=== PATIENT | female | born 1985 | race Caucasian/White ===

== ENCOUNTER 2019-08-19 18:27 | Emergency (ER) | payer OTHER, SELFPAY ==
--- NOTE | ~2019-08-19 | XR_ITS ---
XR hand LT min 3V 08/19/2019 18:57 INDICATION: Left hand pain and swelling after fall PROCEDURE: 3 views left hand COMPARISON: No prior studies for comparison. FINDINGS: Fracture, dislocation or subluxation is not identified. The soft tissues appear within norm al limits. No foreign bodies are identified. IMPRESSION: 1: NO ACUTE BONE OR JOINT ABNORMALITY IDENTIFIED. Reviewed, dictated and finalized at location A. OR C DEVELOPER
--- NOTE | 2019-08-19 18:36 | ED.UPPEXIN ---
HPI - Extremity Injury (Upper) General Chief Complaint: Extremity Injury, Upper Stated Complaint: hurt L hand Time Seen by Provider: 08/19/19 18:37 Source: patient and family Mode of arrival: ambulatory Limitations: no limitations History of Present Illness HPI narrative: 34-year-old woman comes in today complaining of left lateral and pain that started approximately 1 hour ago. Patient states that she tripped and fell forward and she put her hand out in order to stop herself made in the concrete. She complains of pain and swelling over the back of her left hand. She denies any numbness. complaint: injury to: left and hand Onset (ago): hour(s) (1) Other injuries: none Place: outdoors Severity: moderate Relieving factors: cold therapy Exacerbating factors: movement of extremity Context: fall Treatments prior to arrival: cold therapy Related Data Home Medications Medication Instructions Recorded Confirmed dextroamphetamine-amphetamine 2 cap PO BID 08/19/19 08/19/19 escitalopram oxalate 20 mg PO DAILY 08/19/19 08/19/19 levothyroxine 88 mcg PO DAILY 08/19/19 08/19/19 Allergies Allergy/AdvReac Type Severity Reaction Status Date / Time No Known Allergies Allergy Mild Verified 03/28/08 09:53 Review of Systems Constitutional: Constitutional: Denies chills and Denies fever(s) ENT: Denies dysphagia, Denies nasal congestion and Denies sore throat Cardiovascular: Cardiovascular: Denies chest pain and Denies radiating jaw, neck or arm pain Respiratory: Respiratory: Denies cough, Denies dyspnea and Denies wheezing Gastrointestinal: Gastrointestinal: Denies nausea and Denies vomiting Genitourinary: Genitourinary: Denies nocturia and Denies dysuria Musculoskeletal: Musculoskeletal: Reports as per HPI Integumentary/Breasts: Skin/Breast: Denies pruritus, Denies erythema and Denies rash Neurologic: Denies vertigo, Denies syncope, Denies focal weakness and Denies numbness Hematologic/Lymphatic: Hematologic/Lymphatic: Denies easy bleeding and Denies easy bruising Allergic/Immunologic: Allergic/Immunologic: Denies lip swelling and Denies wheezing PMFSH Past Medical History Medical History ADHD Anxiety Depression Hypothyroidism Obesity Family History Family History (Updated 01/25/16 @ 23:19 by DOCTOR UNKNOWN) Mother Family history of diabetes mellitus in first degree relative Depression Hypertension Family history of sleep apnea Family history of type 2 diabetes mellitus Family history of malignant neoplasm of kidney Sibling Family history of cardiomyopathy Father Family history of emphysema Family history of type 1 diabetes mellitus Social History Social History Smoking status: Never smoker Alcohol intake: current Exam Const: General: healthy appearing and alert Nutritional Appearance: obese Orientation/consciousness: patient oriented x3 Other: moderate acute distress. Resp: Effort & Inspection: normal respiratory effort and not labored Auscultation: clear to auscultation bilaterally, no rales, no rhonchi and no wheezes Cardio: Rate: regular rate Rhythm: regular rhythm Heart sounds: no murmurs Skin: General skin exam: normal color, no jaundice and no pallor Rashes: no rashes Neuro: General: patient oriented x3, moves all extremities, no focal motor deficits and CN's II-XI intact bilaterally Speech: normal speech Extrem: General: no clubbing, cyanosis or edema Other: Mild swelling over the dorsal aspect of the left 4th metacarpal. There is no tenderness with rotation of the digits, abnormal contours, tenderness over the carpals, tenderness over the distal radius or ulna, or snuffbox tenderness on the left. Distal neurovascular exam is intact. NROM at left wrist and and joints. Psych: Appearance: grossly normal and well kempt Mental Status: mental status gross
[2019-08-19 18:39] VITALS: BP 153/87; PULSE 92; RESP 18; TEMP 36.8; O2SAT 99
[2019-08-19] MEDS: IBUPROFEN 600 MG TABLET PO (18:58)
== END 2019-08-19 19:24 | disposition home or self-care (01) ==
PROVIDERS: Emergency Provider Emergency Medicine; PCP Family Medicine
DX: S60.222A Contusion of left hand, initial encounter (principal); W01.0XXA Fall on same level from slipping, tripping and stumbling without subsequent striking against object, initial encounter
CPT/HCPCS: 73130; 99283; A9270

== ENCOUNTER 2019-08-26 13:29 | Outpatient (CLI) | payer OTHER, SELFPAY ==
--- NOTE | ~2019-08-26 | XR_ITS ---
EXAMINATION: XR hand LT min 3V, XR wrist LT min 3V EXAM DATE: 08/26/2019 13:53 (accession [id number]), 08/26/2019 13:55 (accession [id number]) INDICATION: Persistent left hand and wrist pain after fall. TECHNIQUE: Left hand frontal, lateral and oblique projections obtained and reviewed. Left wrist fron thor, frontal with ulnar deviation, oblique and lateral projections obtained and reviewed. Comparison is made to prior examination from 08/19/2019. FINDINGS: Left metacarpal bones are unremarkable. Mildly wide appearing scapholunate joint space on one of the wrist images, could indicate partial dissociation. There is ulnar minus variance. No per iosteal reaction to suggest subacute fracture. There are no acute fractures or dislocations identif ied. There is no subcutaneous gas. The soft tissue is unremarkable. There are no radiopaque forei gn bodies. IMPRESSION: 1. Mildly wide scapholunate joint space, possible ligamentous injury. 2. Congenital ulnar minus variance. Reviewed, dictated and finalized at location B. ALARM REPAIRER IMPRESSION: 1. Mildly wide scapholunate joint space, possible ligamentous injury. 2. Congenital ulnar minus variance.
== END 2019-08-26 13:30 | disposition home or self-care (01) ==
LOC: CHSIMG 13:31
PROVIDERS: PCP Family Medicine; Visit Provider Family Medicine
DX: M79.642 Pain in left hand (principal); M25.532 Pain in left wrist
CPT/HCPCS: 73110; 73130

== ENCOUNTER 2019-09-03 07:38 | Outpatient (CLI) | payer OTHER, SELFPAY ==
--- NOTE | ~2019-09-03 | MR_ITS ---
EXAMINATION: MR wrist LT wo con DATE: 09/03/2019 09:35 INDICATION: Left wrist pain. Fall one week ago. TECHNIQUE: Magnetic resonance imaging (MRI) of the wrist was performed without intravenous contrast. Sequences performed include coronal T1-weighted FSE, coronal PD-weighted FS FSE, axial PD-weighted FS FSE, axial PD-weighted FSE, sagittal PD-weighted FSE, and sagittal PD-weighted FS FSE. COMPARISON: Left wrist radiographs 08/26/2019 FINDINGS: Intrinsic ligaments: Scapholunate ligament is normal, but sensitivity is decreased by motion artifact. Lunotriquetral liga ment is normal. Triangular fibrocartilage complex (TFCC): The triangular fibrocartilage is normal, but sensitivity is decreased by motion artifact. Extensor wrist: The extensor tendons are normal. Flexor wrist: The flexor tendons are normal. Median nerve is normal. Guyon's canal: Ulnar nerve is normal. Bones/other: There is a nondisplaced intra-articular fracture of base of fifth metacarpal. There is bone marrow ed jair of distal hamate. IMPRESSION: 1. Nondisplaced intra-articular fracture of base of fifth metacarpal. 2. Bone marrow edema of distal hamate without visible fracture line, consistent with contusion. Reviewed, dictated and finalized at location A.
== END 2019-09-03 07:39 | disposition home or self-care (01) ==
LOC: CHSIMG 07:39
PROVIDERS: PCP Family Medicine; Visit Provider Family Medicine
DX: M25.532 Pain in left wrist (principal)
CPT/HCPCS: 73221

== ENCOUNTER 2020-05-22 09:40 | Outpatient (CLI) | payer OTHER, SELFPAY ==
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
== END 2020-05-22 09:41 | disposition home or self-care (01) ==
LOC: CHSIMG 09:44
PROVIDERS: PCP Family Medicine; Visit Provider Family Medicine
DX: M54.9 Dorsalgia, unspecified (principal)
CPT/HCPCS: 72110

== ENCOUNTER 2020-05-30 09:02 | Outpatient (CLI) | payer OTHER, SELFPAY ==
--- NOTE | ~2020-05-30 | MR_ITS ---
EXAMINATION: MR lumbar spine wo con DATE: 05/30/2020 09:54 INDICATION: Low back pain radiating to left hip. L1 fracture. TECHNIQUE: Magnetic resonance imaging (MRI) of the lumbar spine was performed without intravenous con trast. Sequences included sagittal T2-weighted FSE, sagittal T2-weighted FS FSE, sagittal T1-weighted FSE, and axial T2-weighted FSE. COMPARISON: Lumbar spine radiographs 05/22/2020 FINDINGS: Bone alignment is normal. There is a burst fracture of superior endplate of L1 with 1/5 los s of height, bone marrow edema, and retropulsion of bone 3 mm into central spinal canal. Intervertebr al disc heights are normal. The distal spinal cord signal intensity is normal. The conus medullaris i s at L1-L2. The following disc levels are specifically discussed: T12-L1: The disc does not extend beyond the endplate margin. There is no facet joint osteoarthritis. There is no neural foraminal stenosis. There is mild central canal stenosis. L1-L2: The disc does not extend beyond the endplate margin. There is no facet joint osteoarthritis. T here is no neural foraminal stenosis. There is no central canal stenosis. L2-L3: The disc does not extend beyond the endplate margin. There is mild bilateral facet joint osteo arthritis. There is no neural foraminal stenosis. There is no central canal stenosis. L3-L4: The disc does not extend beyond the endplate margin. There is mild left facet joint osteoarthr itis. There is no neural foraminal stenosis. There is no central canal stenosis. L4-L5: The disc does not extend beyond the endplate margin. There is mild bilateral facet joint osteo arthritis. There is no neural foraminal stenosis. There is no central canal stenosis. L5-S1: The disc is mildly bulging and has an annular fissure. There is moderate bilateral facet joint osteoarthritis. There is mild bilateral neural foraminal stenosis. There is no central canal stenosi s. IMPRESSION: 1. Subacute L1 burst fracture, stable from 05/18/2020. 2. Mild lumbar spondylosis. Reviewed, dictated and finalized at location A. IAL TRACKWORK BLACKSMITH
== END 2020-05-30 09:03 | disposition home or self-care (01) ==
PROVIDERS: PCP Family Medicine; Visit Provider Family Medicine
DX: S32.012A Unstable burst fracture of first lumbar vertebra, initial encounter for closed fracture (principal)
CPT/HCPCS: 72148

== ENCOUNTER 2020-06-28 09:21 | Outpatient (CLI) | payer OTHER, SELFPAY ==
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
== END 2020-06-28 09:22 | disposition home or self-care (01) ==
LOC: CHSIMG 09:23
PROVIDERS: PCP Family Medicine; Visit Provider Family Medicine
DX: S32.011G Stable burst fracture of first lumbar vertebra, subsequent encounter for fracture with delayed healing (principal)
CPT/HCPCS: 72110

== ENCOUNTER 2020-11-05 17:56 | Emergency (ER) | payer OTHER, SELFPAY ==
[2020-11-05 18:05] VITALS: BP 155/102; PULSE 81; RESP 20; TEMP 37.1; O2SAT 99
--- NOTE | 2020-11-05 18:05 | ED.EAR ---
HPI - Ear Problem General Chief complaint: Ear Stated complaint: feels like something in L ear Source: patient and RN notes reviewed Mode of arrival: ambulatory Limitations: no limitations History of Present Illness HPI Narrative: Patient feels like there is something crawling in her ear every few minutes. Started about 30 minutes prior to arrival Complaint: foreign body Location: left ear Duration: intermittent Severity: mild Relieving factors: nothing Exacerbating factors: nothing Discharge from ear: Reports no Treatment prior to arrival: none Related Data Home Medications Medication Instructions Recorded Confirmed dextroamphetamine-amphetamine 2 cap PO BID 08/19/19 08/19/19 escitalopram oxalate 20 mg PO DAILY 08/19/19 08/19/19 Allergies Allergy/AdvReac Type Severity Reaction Status Date / Time No Known Allergies Allergy Mild Verified 03/28/08 09:53 Review of Systems Review of Systems: All systems reviewed & are unremarkable except as noted in HPI and below PMFSH Past Medical History Medical History (Updated 11/05/20 @ 18:15 by Rnajeet Lang MD) ADHD Anxiety Depression Hypothyroidism Obesity Surgical History Surgical History (Updated 11/05/20 @ 18:15 by Ranjeet Lang MD) No pertinent past surgical history Family History Family History Mother Family history of diabetes mellitus in first degree relative Depression Hypertension Family history of sleep apnea Family history of type 2 diabetes mellitus Family history of malignant neoplasm of kidney Sibling Family history of cardiomyopathy Father Family history of emphysema Family history of type 1 diabetes mellitus Social History Social History Smoking status: Never smoker Alcohol intake: current Exam Const: General: healthy appearing and no acute distress Nutritional Appearance: well nourished and obese morbidly obese Orientation/consciousness: patient oriented x3 Other: female nurse in room during examination. HENMT: Head: normal to inspection Ears: external ears normal, TM's normal bilaterally and Abnormal EAC present foreign body ( There is an and crawling in her ear over her eardrum) on the left Eyes: Conjunctivae: conjunctivae normal Pupils: Equal, round and reactive pupils present EOM: EOMs intact bilaterally Neck: Neck: normal visual inspection Resp: Effort & Inspection: normal respiratory effort Auscultation: clear to auscultation bilaterally Cardio: Rate: regular rate Rhythm: regular rhythm Back/Spine/Pelvis: Cervical Spine: cervical ROM normal Thoracic/Lumbar Spine: thoraco-lumbar ROM normal Skin: General skin exam: normal color Rashes: no rashes Neuro: General: patient oriented x3, moves all extremities and no focal motor deficits Speech: normal speech Gait exam (Neuro): Normal gait present Extrem: General: normal to inspection and no clubbing, cyanosis or edema Psych: Appearance: grossly normal and well kempt Mental Status: mental status grossly normal Affect: normal affect Attitude: cooperative Thought content: Yes Normal thought content present Course Course Emergency Course: nurse was able to flush the ant out of the left EAC with an Angiocath and syringe Discharge Plan Discharge Clinical Impression: Foreign body in ear Qualifiers: Encounter type: initial encounter Laterality: left Qualified Code(s): T16.2XXA - Foreign body in left ear, initial encounter Patient Disposition: Home, Self-Care Condition: Improved Prescriptions: No Action dextroamphetamine-amphetamine 20 mg capsule,extended release 24hr 2 cap PO BID RF: 0 escitalopram oxalate 20 mg tablet 20 mg PO DAILY RF: 0 Follow-up/Referrals: Henry Pham MD [Primary Care Provider] - Time of Disposition: 18:12
== END 2020-11-05 18:16 | disposition home or self-care (01) ==
PROVIDERS: Emergency Provider Emergency Medicine; PCP Family Medicine
DX: T16.2XXA Foreign body in left ear, initial encounter (principal)
CPT/HCPCS: 99282

== ENCOUNTER 2020-11-21 09:56 | Outpatient (CLI) | payer OTHER, SELFPAY ==
[2020-11-21 10:08] LABS: Basophils Absolute Auto 0.05 K/mm3 (0.00-0.10); Basophils Percent Auto 0.6 % (0.0-1.0); Eosinophils Absolute Auto 0.23 K/mm3 (0.02-0.50); Eosinophils Percent Auto 2.9 % (1.0-6.0); Hematocrit 40.3 % (35.0-49.0); Hemoglobin 12.9 g/dL (12.0-15.0); Immature Granulocyte Absolute 0.03 K/mm3 (0.00-0.00); Immature Granulocyte Percent A 0.4 % (0.0-0.0); Lymphocytes Percent Auto 33.2 % (18.0-42.0); Mean Corpuscular Hemoglobin 25.2 pg (27.0-31.0); Mean Corpuscular Volume 78.9 fL (78.0-102.0); Mean Platelet Volume 9.9 fl (9.2-11.8); Monocytes Percent Auto 5.1 % (2.0-11.0); Neutrophils Absolute Auto 4.5 K/mm3 (1.7-7.2); Neutrophils Percent Auto 57.8 % (50.0-70.0); Platelet Count Result 273 K/mm3 (150-420); Red Blood Count 5.11 M/mm3 (4.20-5.40); Red Cell Distribution Width 13.6 % (11.6-14.4); White Blood Count 7.8 K/mm3 (4.8-10.8)
[2020-11-21 11:15] LABS: Alanine Aminotransferase 24 U/L (14-59); Albumin Level 3.5 g/dL (3.4-5.0); Alkaline Phosphatase 93 U/L (46-116); Anion Gap 8 mmol/L (8-16); Aspartate Amino Transferase 10 U/L (15-37); Bilirubin,Total 0.2 mg/dL (0.00-1.00); Blood Urea Nitrogen 13 mg/dL (7-18); Carbon Dioxide 29 mmol/L (21-32); Chloride 101 mmol/L (98-108); Cholesterol 167 mg/dL (0-200); Estimated Glomerular Filt Rate > 60; Glucose 101 mg/dL (70-99); HDL Direct 41 mg/dL (40-60); LDL Cholesterol Calculated 99 mg/dL (<130); Osmolality Calculated 286 mOsm/kg (285-295); Potassium 4.7 mmol/L (3.5-5.1); Sodium 138 mmol/L (136-145); Thyroid Stimulating Hormone 2.29 uIU/mL (0.36-3.74); Total Protein 7.5 g/dL (6.4-8.2); Triglycerides 133 mg/dL (0-150)
== END 2020-11-21 09:57 | disposition home or self-care (01) ==
LOC: CHSLAB 09:58
PROVIDERS: PCP Family Medicine; Visit Provider Family Medicine
DX: R53.83 Other fatigue (principal); E03.8 Other specified hypothyroidism; Z13.220 Encounter for screening for lipoid disorders
CPT/HCPCS: 36415; 80053; 80061; 84439; 84443; 85025

== ENCOUNTER 2020-12-06 13:58 | Outpatient (CLI) | payer OTHER, SELFPAY ==
[2020-12-06 15:07] LABS: SARS-CoV-2 RNA PCR Negative (Negative)
== END 2020-12-06 13:59 | disposition home or self-care (01) ==
LOC: CHSLAB 14:00
PROVIDERS: PCP Family Medicine; Visit Provider Family Medicine
DX: J00 Acute nasopharyngitis [common cold] (principal); Z20.822 Contact with and (suspected) exposure to COVID-19
CPT/HCPCS: 87081; 87880; C9803; U0003; U0005

== ENCOUNTER 2021-04-11 10:11 | Outpatient (CLI) | payer OTHER, SELFPAY ==
[2021-04-11 11:46] LABS: Influenza A QL RT-PCR Negative (Negative); Influenza B QL RT-PCR Negative (Negative); SARS-CoV-2 RNA PCR Negative (Negative)
== END 2021-04-11 10:12 | disposition home or self-care (01) ==
LOC: CHSLAB 10:13
PROVIDERS: PCP Family Medicine; Visit Provider Family Medicine
DX: J00 Acute nasopharyngitis [common cold] (principal); Z20.822 Contact with and (suspected) exposure to COVID-19
CPT/HCPCS: 87081; 87502; 87880; C9803; U0003; U0005

== ENCOUNTER 2021-04-25 15:56 | Outpatient (CLI) | payer OTHER, SELFPAY ==
--- NOTE | ~2021-04-25 | XR_ITS ---
EXAMINATION: XR chest 2V DATE: 04/25/2021 16:24 INDICATION: Cough. TECHNIQUE: Frontal and lateral views of the chest were obtained. COMPARISON: Chest 2 views 07/22/16, lumbar spine radiographs 06/28/2020 FINDINGS: The chest demonstrates clear lungs without pneumonia, pleural effusion, or pneumothorax. Th e heart size is normal. There is a chronic L1 burst fracture. IMPRESSION: 1. No acute cardiopulmonary disease. Reviewed, dictated and finalized at location A.
== END 2021-04-25 15:57 | disposition home or self-care (01) ==
LOC: CHSIMG 15:57
PROVIDERS: PCP Family Medicine; Visit Provider Family Medicine
DX: R05.9 Cough, unspecified (principal)
CPT/HCPCS: 71046

== ENCOUNTER 2021-09-27 08:04 | Outpatient (CLI) | payer OTHER, SELFPAY ==
--- NOTE | ~2021-09-27 | XR_ITS ---
XR_CERV2-3V_CR DATE: 09/27/2021 08:38 INDICATION: Left-sided neck pain for 2 days. No known injury. TECHNIQUE: AP, lateral, open-mouth and odontoid views COMPARISON: None FINDINGS: There is straightening of the cervical spine which may be due to muscle spasm. C1 and C2 are normally aligned and the odontoid process is intact. No fracture or dislocation or locked facet or prevertebral soft tissue swelling. The cervical intersp aces are well preserved. IMPRESSION: Straightening Reviewed, dictated and finalized at Location A. Reviewed, dictated and finalized at location A. IMPRESSION: Straightening
[2021-09-27 08:15] LABS: Hematocrit 39.9 % (35.0-49.0); Mean Corpuscular HGB Conc 32.6 g/dL (32.0-36.0); Mean Corpuscular Hemoglobin 25.9 pg (27.0-31.0); Mean Corpuscular Volume 79.6 fL (78.0-102.0); Mean Platelet Volume 9.9 fl (9.2-11.8); Platelet Count Result 280 K/mm3 (150-420); Red Blood Count 5.01 M/mm3 (4.20-5.40); Red Cell Distribution Width 14.2 % (11.6-14.4); White Blood Count 8.6 K/mm3 (4.8-10.8)
[2021-09-27 08:25] LABS: Add Urine Microscopic? NO; Appearance Urine Clear (Clear); Bilirubin Urine Negative (Negative); Blood Urine Negative (Negative); Color Urine Light Yellow (Yellow); Glucose Urine UA Negative (Negative); Ketones Urine Negative (Negative); Leukocyte Esterase Ur Negative LEU/UL (Negative); Nitrate Urine Negative (Negative); Protein Urine Negative (Negative); Specific Grav Ur 1.025 (1.010-1.020); Urobilinogen Urine 0.2 mg/dL (0.2-1.0); pH Urine 5.5 (5.0-8.0)
[2021-09-27 08:35] LABS: Hemoglobin A1C 6.3 % (<5.7)
[2021-09-27 09:20] LABS: Alanine Aminotransferase 21 U/L (14-59); Albumin Level 3.3 g/dL (3.4-5.0); Alkaline Phosphatase 85 U/L (46-116); Anion Gap 8 mmol/L (8-16); Aspartate Amino Transferase 10 U/L (15-37); Bilirubin,Total 0.1 mg/dL (0.00-1.00); Blood Urea Nitrogen 15 mg/dL (7-18); Calcium 8.3 mg/dL (8.5-10.1); Carbon Dioxide 25 mmol/L (21-32); Chloride 103 mmol/L (98-108); Cholesterol 158 mg/dL (0-200); Estimated Glomerular Filt Rate > 60; Free T4 Free Thyroxine 0.86 ng/dL (0.76-1.46); Glucose 114 mg/dL (70-99); HDL Direct 33 mg/dL (40-60); LDL Cholesterol Calculated 79 mg/dL (<130); Osmolality Calculated 283 mOsm/kg (285-295); Potassium 4.5 mmol/L (3.5-5.1); Sodium 136 mmol/L (136-145); Thyroid Stimulating Hormone 4.91 uIU/mL (0.36-3.74); Total Protein 7.1 g/dL (6.4-8.2); Triglycerides 229 mg/dL (0-150)
[2021-10-01 14:05] LABS: Vitamin D 25 Hydroxy 13 ng/mL (30-100)
== END 2021-09-27 08:05 | disposition home or self-care (01) ==
LOC: CHSLAB 08:06
PROVIDERS: PCP Family Medicine; Visit Provider Nurse Practitioner Family
DX: M54.2 Cervicalgia (principal); R73.9 Hyperglycemia, unspecified; E66.9 Obesity, unspecified; E03.9 Hypothyroidism, unspecified
CPT/HCPCS: 36415; 72040; 80053; 80061; 81003; 82306; 83036; 84439; 84443; 85027

== ENCOUNTER 2021-10-08 10:50 | Outpatient (RCR) | payer OTHER, SELFPAY ==
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
--- NOTE | 2022-03-05 06:51 | PCPTNOTE ---
Ms. Galvan attended at treatment from 10/08/21 to 12/12/21. She has failed to return to the clinic and will be discharged from our care at this time. Refer to the last daily note for pt. discharge status.
== END 2021-12-12 23:59 | disposition home or self-care (01) ==
LOC: CHSPT 10:50
PROVIDERS: PCP Family Medicine; Visit Provider Family Medicine
DX: M54.2 Cervicalgia (principal); M25.511 Pain in right shoulder
CPT/HCPCS: 97012; 97014; 97110; 97140; 97161; G0283

== ENCOUNTER 2021-11-16 09:01 | Outpatient (CLI) | payer OTHER, SELFPAY ==
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
== END 2021-11-16 09:02 | disposition home or self-care (01) ==
LOC: CHSIMG 09:03
PROVIDERS: PCP Family Medicine; Visit Provider Family Medicine
DX: M54.2 Cervicalgia (principal); M25.511 Pain in right shoulder
CPT/HCPCS: 72040; 73030

== ENCOUNTER 2022-01-18 11:55 | Emergency (ER) | payer OTHER, SELFPAY ==
[2022-01-18] VITALS (9 sets, daily range): BP systolic 127–163; BP diastolic 70–94; PULSE 74–111; RESP 16–18; TEMP 36.8; O2SAT 95–100
[2022-01-18 13:45] LABS: Basophils Absolute Auto 0.03 K/mm3 (0.00-0.10); Basophils Percent Auto 0.3 % (0.0-1.0); Eosinophils Absolute Auto 0.21 K/mm3 (0.02-0.50); Eosinophils Percent Auto 2.1 % (1.0-6.0); Hematocrit 36.9 % (35.0-49.0); Hemoglobin 11.6 g/dL (12.0-15.0); Immature Granulocyte Absolute 0.04 K/mm3 (0.00-0.00); Immature Granulocyte Percent A 0.4 % (0.0-0.0); Lymphocytes Absolute Auto 2.75 K/mm3 (1.10-4.50); Mean Corpuscular HGB Conc 31.4 g/dL (32.0-36.0); Mean Corpuscular Hemoglobin 25.1 pg (27.0-31.0); Mean Corpuscular Volume 79.9 fL (78.0-102.0); Mean Platelet Volume 10.2 fl (9.2-11.8); Monocytes Absolute Auto 0.52 K/mm3 (0.10-0.90); Monocytes Percent Auto 5.1 % (2.0-11.0); Neutrophils Absolute Auto 6.6 K/mm3 (1.7-7.2); Neutrophils Percent Auto 65.1 % (50.0-70.0); Platelet Count Result 271 K/mm3 (150-420); Red Blood Count 4.62 M/mm3 (4.20-5.40); Red Cell Distribution Width 14.4 % (11.6-14.4); White Blood Count 10.2 K/mm3 (4.8-10.8)
[2022-01-18 13:59] LABS: Alanine Aminotransferase 30 U/L (14-59); Albumin Level 3.4 g/dL (3.4-5.0); Alkaline Phosphatase 80 U/L (46-116); Anion Gap 7 mmol/L (8-16); Aspartate Amino Transferase 17 U/L (15-37); Bilirubin,Total 0.3 mg/dL (0.00-1.00); Blood Urea Nitrogen 12 mg/dL (7-18); Calcium 8.6 mg/dL (8.5-10.1); Carbon Dioxide 26 mmol/L (21-32); Chloride 104 mmol/L (98-108); Estimated Glomerular Filt Rate > 60; Glucose 89 mg/dL (70-99); Osmolality Calculated 282 mOsm/kg (285-295); Sodium 137 mmol/L (136-145); Total Protein 7.4 g/dL (6.4-8.2)
[2022-01-18 14:04] LABS: CRP 2.7 mg/dL (0.0-0.9)
[2022-01-18] MEDS: MAG HYDROX/ALUMINUM HYD/SIMETH 30 ML, PHENobarb/HYOSCY/ATROPINE/SCOP 32.4 MG, LIDOCAINE... PO (14:28)
[2022-01-18] MEDS: KETOROLAC 30 MG/ML VIAL (*BKC) IV PUSH (14:29)
[2022-01-18] MEDS: ONDANSETRON INJ 4 MG/2 ML VIAL IV PUSH (14:30)
[2022-01-18] MEDS: diphenhydrAMINE HCl INJ 50 MG/ML VIAL IV PUSH (14:31)
[2022-01-18] MEDS: SODIUM CHLORIDE 0.9% IV 1,000 ML 999 ML IV CONT (14:31)
[2022-01-18 14:47] LABS: Erythrocyte Sedimentation Rate 27 mm/hr (0-15)
--- NOTE | 2022-01-18 15:36 | ED.GENADULT ---
HPI - General Adult General Chief complaint: Nausea/Vomiting/Diarrhea Stated complaint: nausea, vomitting, headache, bloody nose History of Present Illness HPI narrative: patient is a 36-year-old woman who had a nosebleed yesterday that resolved. Subsequently, at 3:00 a.m. today, she had an episode of nausea and 1 episode of vomiting, for which she took Pepto-Bismol. She did well initially. At work, she developed nausea & a worsening headache. The headache is similar to her migraine headaches that she gets frequently. She has had a head CT scan in the recent past that was negative. Also had heartburn symptoms that subsequently resolved. No abdominal pain. No fever no chills or diaphoresis. No respiratory symptoms. No other complaints. The headache is not worse by light, noise or movements. No further emesis. Related Data Home Medications Medication Instructions Recorded Confirmed dextroamphetamine-amphetamine ER 2 cap PO BID 08/19/19 01/18/22 20 mg 24hr capsule,extend release escitalopram oxalate 20 mg tablet 20 mg PO DAILY 08/19/19 01/18/22 Allergies Allergy/AdvReac Type Severity Reaction Status Date / Time No Known Allergies Allergy Mild Verified 01/18/22 12:21 Review of Systems Review of Systems: All systems reviewed & are unremarkable except as noted in HPI and below Constitutional: Constitutional: Reports no additional constitutional complaints, Denies anorexia, Denies body ache(s), Denies chills, Denies excessive sweating, Denies fatigue, Denies fever(s), Denies frequent falls, Denies headache(s), Denies malaise and Denies poor appetite Eyes: Eyes: Reports no additional eye complaints, Denies blurry vision, Denies change in vision, Denies irritation, Denies itchy eyes and Denies photophobia ENT: Reports system reviewed and no additional complaints, except as documented, Reports Normal hearing present, Denies change in voice, Denies dysphagia, Denies vertigo, Denies dizziness, Denies ear discharge, Denies headache(s), Denies hearing loss, Denies hoarseness, Denies nasal congestion, Denies neck pain, Denies sinus pressure, Denies sore throat and Denies throat swelling Cardiovascular: Cardiovascular: Reports no additional cardiovascular complaints, Denies chest pain, Denies syncope, Denies rapid heart rate, Denies irregular heart rhythm, Denies leg edema, Denies dyspnea and Denies slow heart rate Respiratory: Respiratory: Reports no additional respiratory complaints, Denies cough, Denies dyspnea, Denies stridor and Denies wheezing Gastrointestinal: Gastrointestinal: Reports no additional gastrointestinal complaints, Denies abdominal pain, Denies melena, Denies hematochezia, Denies dysphagia, Reports heartburn, Denies diarrhea, Reports nausea and Reports vomiting Genitourinary: Genitourinary: Denies hematuria, Denies urinary frequency, Denies dysuria, Denies flank pain and Denies urinary urgency Musculoskeletal: Musculoskeletal: Reports no additional musculoskeletal complaints, Denies abnormal gait, Denies back pain, Denies myalgias, Denies arthralgias, Denies joint swelling, Denies limited range of motion, Denies muscle cramps, Denies muscle weakness, Denies neck pain and Denies numbness Integumentary/Breasts: Skin/Breast: Reports system reviewed and no additional complaints, except as docu, Denies breast pain, Denies change in pigmentation, Denies pruritus, Denies erythema and Denies wounds Neurologic: Reports system reviewed and no additional complaints, except as documented, Reports Normal hearing present, Denies Abnormal speech present, Denies abnormal gait, Denies confusion, Denies vertigo, Denies dizziness, Denies syncope, Denies frequent falls, Reports headache(s), Denies focal weakness, Denies numbness and Denies paresthesias Psychiatric: Psychiatric: Reports no additional psychiatric complaints and Denies confusion Endocrine: Endocrine: Reports no additional endocrine complaints, Denies cold intolerance, Denies e
== END 2022-01-18 16:10 | disposition home or self-care (01) ==
PROVIDERS: Emergency Provider Emergency Medicine; PCP Family Medicine
DX: R51.9 Headache, unspecified (principal); R11.2 Nausea with vomiting, unspecified
CPT/HCPCS: 36415; 80053; 85025; 85652; 86140; 96361; 96374; 96375; 99284; A9270; J1200; J1885; J2405; J7030

== ENCOUNTER 2022-04-15 09:55 | Outpatient (CLI) | payer OTHER, SELFPAY ==
--- NOTE | ~2022-04-15 | XR_ITS ---
EXAMINATION:XR_[id number]_CR DATE: 04/15/2022 10:12 INDICATION: Neck pain TECHNIQUE: AP, lateral, lateral swimmers and odontoid views of the cervical spine are provided. COMPARISON: 11/16/2021 FINDINGS: There is straightening of the cervical spine which can be positional or due to muscular spa sm. Alignment is normal. The odontoid is intact. No fracture is identified. Vertebral body heights an d disk spaces are normal. Prevertebral soft tissues are normal. IMPRESSION: 1. No acute osseous abnormality. Reviewed, dictated and finalized at location A.
== END 2022-04-15 09:56 | disposition home or self-care (01) ==
LOC: CHSIMG 09:57
PROVIDERS: PCP Family Medicine; Visit Provider Family Medicine
DX: M54.2 Cervicalgia (principal)
CPT/HCPCS: 72040

== ENCOUNTER 2022-07-04 19:38 | Emergency (ER) | payer OTHER, SELFPAY ==
--- NOTE | 2022-07-04 19:43 | ED.GENADULT ---
HPI - General Adult General Chief complaint: Nausea/Vomiting/Diarrhea Stated complaint: diarrhea, abdominal pain, nauseous Time Seen by Provider: 07/04/22 19:42 History of Present Illness HPI narrative: Sepideh is a 37F with a PMH of ADHD, anxiety, depression, hypothyroidism and obesity that presented to the ED with abdominal pain. Earlier in the day she developed waxing and waning diffuse abdominal cramping with several episodes of watery diarrhea and nausea. It is better with leaving forward but worse with standing up. No flank pain, dysuria, hematuria, or vaginal bleeding. She reports good fluid intake. Related Data Home Medications Medication Instructions Recorded Confirmed dextroamphetamine-amphetamine ER 2 cap PO BID 08/19/19 07/04/22 20 mg 24hr capsule,extend release escitalopram oxalate 20 mg tablet 20 mg PO DAILY 08/19/19 07/04/22 Allergies Allergy/AdvReac Type Severity Reaction Status Date / Time No Known Allergies Allergy Mild Verified 01/18/22 12:21 Review of Systems Review of Systems: All systems reviewed & are unremarkable except as noted in HPI and below PMFSH Past Medical History Medical History ADHD Anxiety Depression Hypothyroidism Obesity Surgical History Surgical History No pertinent past surgical history Family History Family History Mother Family history of diabetes mellitus in first degree relative Depression Hypertension Family history of sleep apnea Family history of type 2 diabetes mellitus Family history of malignant neoplasm of kidney Sibling Family history of cardiomyopathy Father Family history of emphysema Family history of type 1 diabetes mellitus Social History Social History Smoking status: Never smoker Alcohol intake: current Exam Const: General: healthy appearing and no acute distress Nutritional Appearance: well nourished Orientation/consciousness: patient oriented x3 Limitations: no limitations HENMT: Head: normal to inspection Ears: external ears normal Face/Nose/Sinus: Normal external nose present Eyes: Conjunctivae: conjunctivae normal Pupils: Equal, round and reactive pupils present EOM: EOMs intact bilaterally Neck: Neck: normal visual inspection Chest: Chest palpation & inspection: normal inspection of the chest Resp: Effort & Inspection: normal respiratory effort Auscultation: clear to auscultation bilaterally Cardio: Rate: regular rate Rhythm: regular rhythm GI: Inspection: non-distended GI Palp: Yes Soft to palpation, No Tenderness to palpation present (GI), No Guarding due to palpation present (GI), No Rigid due to palpation and No Rebound tenderness present Auscultation: normal bowel sounds : General: Yes bladder normal to palpation and Yes no CVA tenderness Skin: General skin exam: normal color Neuro: General: patient oriented x3 and moves all extremities Extrem: General: normal to inspection Psych: Mental Status: mental status grossly normal Course Course Emergency Course: labs largely unremarkable except an elevated CRP. No anemia, leukocytosis, severe electrolyte abnormalities, unremarkable UA and negative viral testing. She felt better after the dicyclomine and zofran Vital Signs Vital signs: Vital Signs Temperature 99.0 F 07/04/22 19:46 Pulse Rate 102 H 07/04/22 19:46 Respiratory Rate 18 07/04/22 19:46 Blood Pressure 155/88 H 07/04/22 19:46 Pulse Oximetry 100 07/04/22 19:46 Oxygen Delivery Room Air 07/04/22 19:46 Temperature 99.0 F 07/04/22 19:46 Pulse Rate 102 H 07/04/22 19:46 Respiratory Rate 18 07/04/22 19:46 Blood Pressure 155/88 H 07/04/22 19:46 Pulse Oximetry 100 07/04/22 19:46 Oxygen Delivery Room Air 07/04/22 19:46 Me
[2022-07-04 19:46] VITALS: BP 155/88; PULSE 102; RESP 18; TEMP 37.2; O2SAT 100
[2022-07-04] MEDS: ONDANSETRON HCL ODT 4 MG TABLET PO (19:58)
[2022-07-04] MEDS: DICYCLOMINE HCL INJ 20 MG/2 ML VIAL IM (19:58)
[2022-07-04 20:21] LABS: Basophils Absolute Auto 0.02 K/mm3 (0.00-0.10); Basophils Percent Auto 0.2 % (0.0-1.0); Eosinophils Absolute Auto 0.09 K/mm3 (0.02-0.50); Eosinophils Percent Auto 0.9 % (1.0-6.0); Hematocrit 39.6 % (35.0-49.0); Hemoglobin 12.5 g/dL (12.0-15.0); Immature Granulocyte Absolute 0.05 K/mm3 (0.00-0.00); Immature Granulocyte Percent A 0.5 % (0.0-0.0); Lymphocytes Absolute Auto 0.54 K/mm3 (1.10-4.50); Lymphocytes Percent Auto 5.6 % (18.0-42.0); Mean Corpuscular HGB Conc 31.6 g/dL (32.0-36.0); Mean Corpuscular Hemoglobin 24.8 pg (27.0-31.0); Mean Corpuscular Volume 78.6 fL (78.0-102.0); Mean Platelet Volume 10.1 fl (9.2-11.8); Monocytes Absolute Auto 0.29 K/mm3 (0.10-0.90); Neutrophils Absolute Auto 8.7 K/mm3 (1.7-7.2); Neutrophils Percent Auto 89.8 % (50.0-70.0); Platelet Count Result 231 K/mm3 (150-420); Red Blood Count 5.04 M/mm3 (4.20-5.40); Red Cell Distribution Width 14.6 % (11.6-14.4); White Blood Count 9.6 K/mm3 (4.8-10.8)
[2022-07-04 20:34] LABS: Prothrombin Time 10.9 Seconds (9.50-12.10)
[2022-07-04 20:37] LABS: Alanine Aminotransferase 33 U/L (14-59); Albumin Level 3.4 g/dL (3.4-5.0); Alkaline Phosphatase 87 U/L (46-116); Anion Gap 8 mmol/L (8-16); Aspartate Amino Transferase 20 U/L (15-37); Bilirubin,Total 0.4 mg/dL (0.00-1.00); Blood Urea Nitrogen 12 mg/dL (7-18); CRP 3.5 mg/dL (0.0-0.9); Calcium 8.2 mg/dL (8.5-10.1); Carbon Dioxide 27 mmol/L (21-32); Chloride 98 mmol/L (98-108); Estimated CRCL calculation 131 ml/min; Estimated Glomerular Filt Rate > 60; Glucose 126 mg/dL (70-99); Lipase 17 U/L (16-77); Osmolality Calculated 277 mOsm/kg (285-295); Potassium 3.8 mmol/L (3.5-5.1); Sodium 133 mmol/L (136-145); Total Protein 7.9 g/dL (6.4-8.2)
[2022-07-04 20:38] LABS: Add Urine Microscopic? NO; Appearance Urine Clear (Clear); Bilirubin Urine Negative (Negative); Blood Urine Negative (Negative); Color Urine Yellow (Yellow); Glucose Urine UA Negative (Negative); Ketones Urine Negative (Negative); Leukocyte Esterase Ur Negative LEU/UL (Negative); Nitrate Urine Negative (Negative); Protein Urine Negative (Negative); Specific Grav Ur >= 1.030 (1.010-1.020); Urobilinogen Urine 0.2 mg/dL (0.2-1.0); pH Urine 5.5 (5.0-8.0)
[2022-07-04 20:40] LABS: Pregnancy On Board Control Positive; Urine Pregnancy Test Negative
[2022-07-04 20:42] LABS: Lactic Acid Reflex 1.4 mmol/L (0.4-2.0)
[2022-07-04 20:59] LABS: Influenza A QL RT-PCR Negative (Negative); Influenza B QL RT-PCR Negative (Negative); RSV RNA, RT-PCR Negative (Negative); SARS-CoV-2 RNA PCR Negative (Negative)
[2022-07-04 21:05] VITALS: BP 100/56; PULSE 99; RESP 18; TEMP 36.6; O2SAT 100
== END 2022-07-04 21:13 | disposition home or self-care (01) ==
PROVIDERS: Emergency Provider Family Medicine; PCP Family Medicine
DX: K52.9 Noninfective gastroenteritis and colitis, unspecified (principal); E03.9 Hypothyroidism, unspecified; F90.9 Attention-deficit hyperactivity disorder, unspecified type; F41.9 Anxiety disorder, unspecified; F32.A Depression, unspecified; E66.01 Morbid (severe) obesity due to excess calories; Z68.43 Body mass index [BMI] 50.0-59.9, adult; Z20.822 Contact with and (suspected) exposure to COVID-19
CPT/HCPCS: 36415; 80053; 81003; 81025; 83605; 83690; 85025; 85610; 86140; 87637; 96372; 99283; A9270; J0500

== ENCOUNTER 2022-09-19 15:07 | Outpatient (CLI) | payer OTHER, SELFPAY ==
[2022-09-19 15:49] LABS: Strep Group A RT-PCR NOT DETECTED (Negative)
[2022-09-19 15:57] LABS: Influenza A QL RT-PCR Negative (Negative); Influenza B QL RT-PCR Negative (Negative); SARS-CoV-2 RNA PCR Negative (Negative)
== END 2022-09-19 15:08 | disposition home or self-care (01) ==
PROVIDERS: PCP Family Medicine; Visit Provider Family Medicine
DX: R05.1 Acute cough (principal); Z20.822 Contact with and (suspected) exposure to COVID-19
CPT/HCPCS: 87636; 87651

== ENCOUNTER 2022-12-19 11:48 | Outpatient (CLI) | payer OTHER, SELFPAY ==
--- NOTE | ~2022-12-19 | XR_ITS ---
Lumbosacral Spine: AP and lateral views Clinical History: Pain Findings: The normal lordotic curve is maintained. The vertebral bodies and posterior elements are i ntact. The intervertebral disc spaces are preserved. The sacroiliac joints are normally outlined. Impression: No significant abnormality. Reviewed, dictated and finalized at [facility]. Impression: No significant abnormality.
== END 2022-12-19 11:49 | disposition home or self-care (01) ==
LOC: CHSIMG 11:50
PROVIDERS: PCP Family Medicine; Visit Provider Family Medicine
DX: M54.41 Lumbago with sciatica, right side (principal)
CPT/HCPCS: 72100

== ENCOUNTER 2023-01-07 12:42 | Outpatient (CLI) | payer OTHER, SELFPAY ==
[2023-01-07 13:30] LABS: Influenza A QL RT-PCR Negative (Negative); Influenza B QL RT-PCR Negative (Negative); SARS-CoV-2 RNA PCR Negative (Negative)
== END 2023-01-07 12:43 | disposition home or self-care (01) ==
LOC: CHSLAB 12:44
PROVIDERS: PCP Family Medicine; Visit Provider Family Medicine
DX: J06.9 Acute upper respiratory infection, unspecified (principal); Z20.822 Contact with and (suspected) exposure to COVID-19
CPT/HCPCS: 87636

== ENCOUNTER 2023-01-12 15:17 | Outpatient (CLI) | payer OTHER, SELFPAY ==
--- NOTE | ~2023-01-12 | XR_ITS ---
XR chest 2V DATE: 01/12/2023 15:45 INDICATION: Cough for one week TECHNIQUE: PA and lateral views COMPARISON: 04/25/2021 PA and lateral chest FINDINGS: Normal heart size. No hilar or mediastinal enlargement. No pulmonary infiltrate or consolid ation, pleural effusion or pulmonary vascular congestion or pneumothorax is detected. IMPRESSION: Negative Reviewed, dictated and finalized at location B. IMPRESSION: Negative
[2023-01-15 02:29] LABS: B. pertussis Source Nasal Swab
== END 2023-01-12 15:18 | disposition home or self-care (01) ==
LOC: CHSLAB 15:19
PROVIDERS: PCP Family Medicine; Visit Provider Family Medicine
DX: R05.9 Cough, unspecified (principal)
CPT/HCPCS: 71046; 87798

== ENCOUNTER 2023-08-14 13:46 | Outpatient (CLI) | payer OTHER, SELFPAY ==
[2023-08-14 14:25] LABS: Strep Group A RT-PCR NOT DETECTED (Negative)
[2023-08-14 14:32] LABS: SARS-CoV-2 RNA PCR Positive (Negative)
[2023-08-14 14:48] LABS: Influenza A QL RT-PCR Negative (Negative); Influenza B QL RT-PCR Negative (Negative)
== END 2023-08-14 13:47 | disposition home or self-care (01) ==
LOC: CHSLAB 13:47
PROVIDERS: PCP Family Medicine; Visit Provider Family Medicine
DX: U07.1 COVID-19 (principal); J06.9 Acute upper respiratory infection, unspecified
CPT/HCPCS: 87636; 87651

== ENCOUNTER 2024-05-20 11:43 | Outpatient (CLI) | payer OTHER, SELFPAY ==
[2024-05-20 11:57] LABS: Basophils Absolute Auto 0.05 K/mm3 (0.00-0.10); Basophils Percent Auto 0.5 % (0.0-1.0); Eosinophils Absolute Auto 0.21 K/mm3 (0.02-0.50); Eosinophils Percent Auto 2.2 % (1.0-6.0); Hematocrit 39.3 % (35.0-49.0); Hemoglobin 12.7 g/dL (12.0-15.0); Immature Granulocyte Absolute 0.11 K/mm3 (0.00-0.00); Immature Granulocyte Percent A 1.1 % (0.0-0.0); Lymphocytes Absolute Auto 3.05 K/mm3 (1.10-4.50); Lymphocytes Percent Auto 31.8 % (18.0-42.0); Mean Corpuscular HGB Conc 32.3 g/dL (32-36); Mean Corpuscular Hemoglobin 24.4 pg (27.0-31.0); Mean Corpuscular Volume 75.6 fL (78.0-102.0); Mean Platelet Volume 9.9 fl (9.2-11.8); Monocytes Absolute Auto 0.42 K/mm3 (0.10-0.90); Monocytes Percent Auto 4.4 % (2.0-11.0); Neutrophils Absolute Auto 5.75 K/mm3 (1.70-7.20); Platelet Count Result 299 K/mm3 (150-420); Red Cell Distribution Width 14.6 % (11.6-14.4); White Blood Count 9.6 K/mm3 (4.8-10.8)
[2024-05-20 11:58] LABS: Add Urine Microscopic? NO; Appearance Urine Clear (Clear); Bilirubin Urine Negative (Negative); Blood Urine Negative (Negative); Color Urine Light Yellow (Yellow); Glucose Urine UA Negative (Negative); Ketones Urine Negative (Negative); Leukocyte Esterase Ur Negative (Negative); Nitrate Urine Negative (Negative); Protein Urine Negative (Negative); Urobilinogen Urine 0.2 mg/dL (0.2-1.0)
[2024-05-20 12:29] LABS: Alanine Aminotransferase 30 U/L (14-59); Albumin Level 3.5 g/dL (3.4-5.0); Alkaline Phosphatase 101 U/L (46-116); Amylase 50 U/L (25-115); Anion Gap 7 mmol/L (4-12); Aspartate Amino Transferase 21 U/L (15-37); Bilirubin,Total 0.4 mg/dL (0.00-1.00); Blood Urea Nitrogen 10 mg/dL (7-18); Calcium 9.3 mg/dL (8.5-10.1); Carbon Dioxide 31 mmol/L (21-32); Chloride 101 mmol/L (98-108); Estimated Glomerular Filt Rate > 60; Glucose 136 mg/dL (70-99); Lipase 26 U/L (16-77); Osmolality Calculated 289 mOsm/kg (285-295); Potassium 4.6 mmol/L (3.5-5.1); Sodium 139 mmol/L (136-145); Total Protein 7.6 g/dL (6.4-8.2)
[2024-05-20 15:48] LABS: SPREG INTERNAL CONTROL Positive; Serum Qual hCG Negative
[2024-05-20 15:58] LABS: Hemoglobin A1C 6.3 % (<5.7)
[2024-05-20 17:27] LABS: Thyroid Stimulating Hormone 2.33 uIU/mL (0.36-3.74)
== END 2024-05-20 11:44 | disposition home or self-care (01) ==
LOC: CHSLAB 11:45
PROVIDERS: PCP Family Medicine; Visit Provider Family Medicine
DX: R10.9 Unspecified abdominal pain (principal); E03.9 Hypothyroidism, unspecified; R73.02 Impaired glucose tolerance (oral)
CPT/HCPCS: 36415; 80053; 81003; 82150; 83036; 83690; 84443; 84703; 85025

== ENCOUNTER 2024-05-23 08:20 | Outpatient (CLI) | payer OTHER, SELFPAY ==
--- NOTE | ~2024-05-23 | US_ITS ---
RIGHT UPPER QUADRANT ABDOMINAL ULTRASOUND (Doppler ultrasound interrogation techniques used as needed for this exam.) Ordering provider: Henry Pham MD History: . Abdominal Pain . Comparison: None. FINDINGS: PANCREAS: Limited visualization. Normal echotexture and size of the visualized portions. PORTAL VEIN: Hepatopedal flow demonstrated. LIVER: Normal size and increased echogenicity. No focal hepatic lesions or perihepatic fluid collecti ons are identified. BILIARY DUCTS: No intra or extrahepatic biliary dilation. Common bile duct measures 3 mm in diameter which is normal for patient's age. GALLBLADDER: Normal. No stones, sludge, gallbladder wall thickening or pericholecystic fluid. Negati ve sonographic Levi's sign. FREE FLUID: None visualized within the upper abdomen. IMPRESSION: Fat infiltration of the liver Otherwise, normal right upper quadrant ultrasound. Reviewed, dictated and finalized at location A. OSOPHY FACULTY IMPRESSION: Fat infiltration of the liver Otherwise, normal right upper quadrant ultrasound .
== END 2024-05-23 08:21 | disposition home or self-care (01) ==
LOC: CHSIMG 08:23
PROVIDERS: PCP Family Medicine; Visit Provider Family Medicine
DX: R10.9 Unspecified abdominal pain (principal); K76.0 Fatty (change of) liver, not elsewhere classified
CPT/HCPCS: 76705

== ENCOUNTER 2024-08-05 14:47 | Outpatient (CLI) | payer OTHER, SELFPAY ==
--- NOTE | ~2024-08-05 | XR_ITS ---
HISTORY: Cervical pain x1 day, NKI COMPARISON: 04/15/2022 TECHNIQUE: FINDINGS: Visualization of the cervical spine to the superior endplate of C6. Straightening of the normal curvature of the cervical spine is identified, likely muscular in origin. No prevertebral soft tissue swelling is appreciated. No acute compression fracture is noted. The dens is equidistant between the pillars, without asymmetry. Air column within the trachea is midline. The visualized portions of the bilateral upper lung matson are unremarkable. IMPRESSION: Straightening of the normal curvature of the cervical spine, likely muscular in origin. Reviewed, dictated and finalized at location A. ENT WINDING MACHINE TENDER
--- NOTE | ~2024-08-05 | XR_ITS ---
EXAMINATION: XR shoulder LT min 2V DATE: 08/05/2024 15:21 INDICATION: Left shoulder pain TECHNIQUE: AP, AP oblique and transscapular Y views of the left shoulder were obtained. COMPARISON: None FINDINGS: Normal alignment. No fracture. Glenohumeral joint is normal. Acromioclavicular joint is normal. Soft tissues are unremarkable. Visualized portions of the left lung are clear. IMPRESSION: Normal left shoulder radiographs. Reviewed, dictated and finalized at location B. PRESIDENT OF MANUFACTURING
--- NOTE | ~2024-08-05 | XR_ITS ---
HISTORY: Upper back pain x1 day, NKI COMPARISON: None TECHNIQUE: 2 views of the thoracic spine were performed FINDINGS: No acute compression fracture is present. Bone mineralization is age-appropriate. No significant degenerative disease. IMPRESSION: Unremarkable radiographic evaluation of the thoracic spine, as detailed above. Reviewed, dictated and finalized at location A. FACTURING WEAVER
--- OUTSIDE RECORDS SUMMARY | 2024-08-05 14:55 | XMS_ITS | Continuity of Care Document ---
Author Organization [facility] Address [address] [place] [address] [address] [place] [address] Phone Care Team Providers Care Veterinary Parasitologist Name Role Phone Lopez OD, Ranjeet Unavailable Unavailable Procedures Procedure Date Eye Exam & Treatment Refraction Eye Exam & Treatment Refraction Advance Directives Directive Yes / No Effective Date File Name No Information Encounters Encounter Description Practice Location Reason(s) For Visit Diagnoses Date Provider Providers Copied on Encounter [facility], [address] [place] [address] [address], [place], [place], [id number], tel:[phone] [facility] No Information 8-200 9 Lopez OD Ranjeet. [address] , [address], [place], [place], [facility] [place], [place]. tel:[phone] [facility], [address] [place] [address] [address], [place], [place], [id number], tel:[phone] [facility] No Information 9-200 8 Lopez OD Ranjeet. [address] , [address], [place], [address], [place]. tel:[phone] Family History Family Member Type Diagnosis Age At Onset No Information Payers Payer name Insurance type Covered republican ID Authoriza tion(s) No Information Social History Type Description Quantity Date Captured Comments Sex Female Smoking Status No Information Chief Complaint And Reason For Visit No Information Reason For Referral Reason For Referral No Information History Of Present Illness Encounter Date Complaint History Of Prese nt Illness No Information Functional Status Date Functional Assessmen t No Information Instructions Date Instruction Additional Infor mation No Information Assessments Type Assessment Date No Information Patient Care Teams Name Effective Dates (start - stop) Status Members No Information
--- OUTSIDE RECORDS SUMMARY | 2024-08-05 14:55 | XMS_ITS | Clinical Summary ---
Author Organization [facility] Address [address] [place] [address] Care Team Providers Care Student Support Services Director Name Role Phone Henry Pham MD Primary Care Provider [phone] Allergies No known active allergies Medications amphetamine-dextro amphetamine XR 20 MG 24 hr capsule 08/24/2019 Ac tive escitalopram 20 MG tablet 08/20/2019 Active Active Problems Problem Noted Date Diagnosed Date Closed nondisplaced fracture of base of fifth metacarpal bone of left hand with routine healing, subsequent encounter 09/09/2019 Hand injury, left, initial encounter 09/08/2019 Left hand pain 09/08/2019 Family History Medical History Relation Comments Diabetes Father Cancer Mother Diabetes Mother Relation Status Comments Father Alive Mother Alive Social History Tobacco Use Types Packs/Day Years Used Date Smoking Tobacco: Never Smokeless Tobacco: Never Alcohol Use Standard Drinks/Week Comments Yes 0 (1 standard drink = 0.6 oz pur e alcohol) Occasionally Comments No Sex and Gender Information Value Date Recorded Sex Assigned at Not on file Legal Sex Female 4:03 PM CDT Gender Identity Not on file Sexual Orientation Not on file Last Filed Vital Signs Vital Sign Reading Time Taken Comments Blood Pressure - - Pulse - - Temperature - - Respiratory Rate - - Oxygen Saturation - - Inhaled Oxygen Concentration - - Weight 127 kg (280 lb) 11/08/2019 10:22 AM CDT Height 165.1 cm (5' 5 ) 11/08/2019 10:22 AM CDT Body Mass Index 46.59 11/08/2019 10:22 AM CDT Plan of Treatment Health Maintenance Due Date Last Done Comments Cervical Cancer Screening Pa p Smear (Age 30 to 64) Every 3 Years 1987 Annual Physical 1990 Hepatitis C 2005 DTaP, Tdap and Td Vaccines ( 1 - Tdap) 2006 Hepatitis B Vaccines (1 of 3 - 19+ 3-dose series) 2006 Cervical Cancer Screening Pa p with HPV Testing (Age 30 to 64) Every 5 Years 2017 Cervical Cancer Screening with HPV 2017 COVID-19 Vaccine ( - 2023-2 5 season) 2024 Influenza Adult (#1) 2024 HPV Vaccines Aged Out No longer eligi ble based on patient's age to complete this topic Meningococcal B Vaccine Aged Out No l onger eligible based on patient's age to complete this topic Meningococcal Vaccine Aged Out No courtney leslie eligible based on patient's age to complete this topic Pneumococcal Vaccine: Pediat rics (0 to 5 Years) and At-Risk Patients (6 to 64 Years) Aged Out No longer eligible b ased on patient's age to complete this topic RSV Immunizations Under 20 Months Aged Out No longer eligible based on patient's age to complete this topic [place] [address] [address] Care Teams Student Support Services Director Relationship Specialty Start Date End Date Henry Pham MD [address] [place] [address] PCP - General FAMILY PRACTICE 09/06/19
== END 2024-08-05 14:48 | disposition home or self-care (01) ==
LOC: CHSIMG 14:51
PROVIDERS: PCP Family Medicine; Visit Provider Family Medicine
DX: M25.512 Pain in left shoulder (principal); M54.2 Cervicalgia; M54.9 Dorsalgia, unspecified
CPT/HCPCS: 72040; 72072; 73030

== ENCOUNTER 2024-08-17 14:49 | Outpatient (RCR) | payer OTHER, SELFPAY ==
--- NOTE | 2024-08-17 15:45 | OPREHPOC ---
Outpatient Therapy Plan of Care This is a Multidisciplinary Plan of Care that may contain components documented by all disciplines (PT, OT, and ST.) PT Problem 1 PT Problem #1 Knowledge Deficit PT Goal 1 Goal / Goal Update The patient will be independent in a home exercise program. Target Visit 2 PT Problem 2 PT Problem #2 Pain PT Goal 1 Goal / Goal Update The patient will report no greater than 2/10 left shoulder pain with lifting and reaching. Target Visit 12 PT Problem 3 PT Problem #3 Impaired Functional Mobility PT Goal 1 Goal / Goal Update The patient will demonstrate 25% or less self perceived disability per the Quick DASH Questionnaire. The patient will lift 5 lbs from shoulder to overhead for 5 repetitions without pain to return to work activities. Target Visit 12 PT Problem 4 PT Problem #4 Impaired Range of Motion PT Goal 1 Goal / Goal Update The patient will demonstrate 30 degrees or better left lateral flexion in the cervical spine. Target Visit 12 PT Problem 5 PT Problem #5 Impaired Strength PT Goal 1 Goal / Goal Update The patient will demonstrate 5/5 left shoulder strength throughout. Target Visit 12
--- NOTE | 2024-08-17 15:46 | PTOPEVAL1 ---
Assessment and note entered by Jessica Low, PT Evaluation Information Assessment Status Evaluation ICD-10 Condition Codes (PT) Pain in left shoulder M25.512 Onset 08/09/24 Subjective Information Sepideh Galvan reports her left shoulder blade starting in June 2024 that went down to the elbow and now is going up into her neck. She notes sharp pain from her elbow down to the fingers. She reports she had been carrying 20lb bags of cat food. She had her mom trying putting biofreeze on it but pain is still present. She went to the doctor and was prescribed a muscle relaxer and steroid. She has completed the steroid medication. She reports she also had x-rays and her doctor told her that her spine is straightening. She is having difficulty reaching her back to wash it, reaching forward, pushing down on her elbow, and washing dishes and performing prep work at [employer]. She has to limit how much she lifts as well. Reported Pain Level Pain Score 8: Self Report Assessment PT Clinical Summary Sepideh Galvan presents with left shoulder pain that started a few weeks ago after carrying heavy cat food bags. She has difficulty with lifting the left arm forward, behind her back, performing prep work and washing dishes at work, and tilting her head to the left. She objectively demonstrates positive special tests for left shoulder impingement and cervical nerve root irritation, decreased cervical lateral flexion and rotation AROM, decreased left shoulder strength, and impaired posture. She will benefit from skilled PT to address these limitations. Plan of Care Interventions Electrical Stimulation,Hot Pack/Cold Pack,Manual Therapy,Neuro Re-education,Patient/Caregiver Education,Therapeutic Activities,Therapeutic Exercise PT Services Indicated Yes Treatment Frequency and 3 times a week for 12 visits Duration These treatments will address the objective and functional deficits as defined above. The patient will be advanced safely and appropriately in order for the patient to progress towards his/her prior level of function. Additional exercises will be introduced and as well as a comprehensive home exercise program upon discharge, if needed, ?to ensure carryover of functional gains achieved in the clinic. This treatment plan has been reviewed and agreement upon by the patient.
--- NOTE | 2024-09-08 15:43 | OPREHPOC ---
Outpatient Therapy Plan of Care This is a Multidisciplinary Plan of Care that may contain components documented by all disciplines (PT, OT, and ST.) PT Problem 1 PT Problem #1 Knowledge Deficit PT Goal 1 Goal / Goal Update The patient will be independent in a home exercise program. Target Visit 2 Progress Met PT Problem 2 PT Problem #2 Pain PT Goal 1 Goal / Goal Update The patient will report no greater than 2/10 left shoulder pain with lifting and reaching. Target Visit 12 Progress Not Met PT Goal 2 Goal / Goal Update continue PT Problem 3 PT Problem #3 Impaired Functional Mobility PT Goal 1 Goal / Goal Update The patient will demonstrate 25% or less self perceived disability per the Quick DASH Questionnaire. The patient will lift 5 lbs from shoulder to overhead for 5 repetitions without pain to return to work activities. Target Visit 12 Progress Not Met PT Goal 2 Goal / Goal Update continue PT Problem 4 PT Problem #4 Impaired Range of Motion PT Goal 1 Goal / Goal Update The patient will demonstrate 30 degrees or better left lateral flexion in the cervical spine. Target Visit 12 Progress Not Met PT Goal 2 Goal / Goal Update continue PT Problem 5 PT Problem #5 Impaired Strength PT Goal 1 Goal / Goal Update The patient will demonstrate 5/5 left shoulder strength throughout. Target Visit 12 Progress Met
--- NOTE | 2024-09-08 15:43 | PTOPPROG ---
Assessment and note entered by Jessica Low, PT Evaluation Information Assessment Status Progress ICD-10 Condition Codes (PT) Pain in left shoulder M25.512 Onset 08/09/24 Subjective Information Sepideh Galvan reports the numbness and tingling in her left UE has returned and been worse lately so she went back to the doctor on 04/22. She had x-rays taken and they came back normal but she was told to continue PT. She does note less numbness and tingling with cervical traction. She still has pain in the left shoulder and neck as well. She has difficulty with heavier chores and lifting. Assessment PT Clinical Summary Sepideh Galvan has completed 10 skilled PT visits for left shoulder pain. She reports the numbness in her left UE has been more intense and she went to the doctor on 09/05/24. She had x-rays and was told to continue skilled PT. She notes less numbness after cervical traction. She continues to note increased symptoms with tilting her head to the left and looking down. She has difficulty with lifting with the left arm and performing heavy household and job duties. She objectively demonstrates improved cervical AROM, improved left shoulder ROM, improved left shoulder strength, and improved postural awareness. She continues to have positive special tests for cervical nerve root irritation, painful and decreased cervical flexion and left lateral flexion AROM, and impaired posture. She will continue to benefit from skilled PT to further address these ongoing physical and functional limitations. Plan of Care Interventions Electrical Stimulation,Hot Pack/Cold Pack,Manual Therapy,Mechanical Traction,Neuro Re-education, Patient/Caregiver Education,Therapeutic Activities ,Therapeutic Exercise PT Services Indicated Yes Treatment Frequency and continue skilled PT 3 times a week for 10 visits Duration These treatments will address the objective and functional deficits as defined above. The patient will be advanced safely and appropriately in order for the patient to progress towards his/her prior level of function. Additional exercises will be introduced and as well as a comprehensive home exercise program upon discharge, if needed, ?to ensure carryover of functional gains achieved in the clinic. This treatment plan has been reviewed and agreement upon by the patient.
--- NOTE | 2024-09-15 16:30 | OPREHPOC ---
Outpatient Therapy Plan of Care This is a Multidisciplinary Plan of Care that may contain components documented by all disciplines (PT, OT, and ST.) PT Problem 1 PT Problem #1 Knowledge Deficit PT Goal 1 Goal / Goal Update The patient will be independent in a home exercise program. Target Visit 2 Progress Met PT Problem 2 PT Problem #2 Pain PT Goal 1 Goal / Goal Update The patient will report no greater than 2/10 left shoulder pain with lifting and reaching. Target Visit 12 Progress Not Met PT Goal 2 Goal / Goal Update continue Progress Not Met PT Problem 3 PT Problem #3 Impaired Functional Mobility PT Goal 1 Goal / Goal Update The patient will demonstrate 25% or less self perceived disability per the Quick DASH Questionnaire. The patient will lift 5 lbs from shoulder to overhead for 5 repetitions without pain to return to work activities. Target Visit 12 Progress Not Met PT Goal 2 Goal / Goal Update continue Progress Not Met PT Problem 4 PT Problem #4 Impaired Range of Motion PT Goal 1 Goal / Goal Update The patient will demonstrate 30 degrees or better left lateral flexion in the cervical spine. Target Visit 12 Progress Not Met PT Goal 2 Goal / Goal Update continue Progress Not Met PT Problem 5 PT Problem #5 Impaired Strength PT Goal 1 Goal / Goal Update The patient will demonstrate 5/5 left shoulder strength throughout. Target Visit 12 Progress Met
--- NOTE | 2024-09-15 16:30 | PTOPDC ---
Assessment and note entered by Jessica Low, PT Evaluation Information Assessment Status Discharge ICD-10 Condition Codes (PT) Pain in left shoulder M25.512 Onset 08/09/24 Subjective Information Sepideh Galvan reports the numbness, tingling, and pain in her left UE has returned again. She notes she gets numbness when she rests on her left elbow and when she moves certain ways. She also has pain in the left upper arm. She is limited with picking up heavy items. She has to sleep with her left arm elevated on a pillow to prevent pain and numbness. Reported Pain Level Pain Score 6: Self Report Assessment PT Clinical Summary Sepideh Galvan has completed 12 skilled PT visits for left shoulder pain. She reports the numbness in her left UE has been more frequent and she is noting it when leaning on her left elbow and when moving certain ways. She has to sleep with her left arm on a pillow to prevent pain and numbness and she is limited with heavy lifting. She presents with numbness in the C5 dermatome of the anterior left upper arm and she prevents with new weakness in the left C5 myotome today. She continues to have positive special tests for cervical nerve root impingement and decreased and painful cervical AROM. PT treatment has provided temporary relief of symptoms but does not last. She is being referred back to her physician due to further worsening of left radicular symptoms and ongoing neck and upper arm pain. Plan of Care PT Services Indicated No
== END 2024-09-15 17:01 | disposition home or self-care (01) ==
LOC: CHSPT 14:49
PROVIDERS: PCP Family Medicine; Visit Provider Family Medicine
DX: M25.512 Pain in left shoulder (principal)
CPT/HCPCS: 97012; 97014; 97110; 97140; 97161; 97530; G0283

== ENCOUNTER 2024-09-06 11:02 | Outpatient (CLI) | payer OTHER, SELFPAY ==
--- NOTE | ~2024-09-06 | XR_ITS ---
XR scapula LT Ordering provider: Henry Pham MD History: . pn lt left shoulder x 2 weeks, more pn after therapy yesterd . Comparison: None. FINDINGS: BONES: No acute fracture or dislocation. JOINT SPACES: The acromioclavicular joint is normal. The glenohumeral joint is normal. SOFT TISSUES: Normal. IMPRESSION: No acute osseous abnormality left shoulder. Reviewed, dictated and finalized at location A.
--- NOTE | ~2024-09-06 | XR_ITS ---
XR shoulder LT min 2V Ordering provider: Henry Pham MD History: . Pn left shoulder x 2 weeks more pn after therapy yesterday . Comparison: September 07, 2023 FINDINGS: BONES: No acute fracture or dislocation. JOINT SPACES: The acromioclavicular joint is normal. The glenohumeral joint is normal. SOFT TISSUES: Normal. IMPRESSION: No acute osseous abnormality left shoulder. Reviewed, dictated and finalized at location A.
--- OUTSIDE RECORDS SUMMARY | 2024-09-06 12:47 | XMS_ITS | Continuity of Care Document ---
Author Organization [facility] Address [address] [place] [address] [address] [place] [address] Phone Care Team Providers Care Ornamental Bronze Worker Name Role Phone Lopez OD, Ranjeet Unavailable Unavailable Procedures Procedure Date Eye Exam & Treatment Refraction Eye Exam & Treatment Refraction Advance Directives Directive Yes / No Effective Date File Name No Information Encounters Encounter Description Practice Location Reason(s) For Visit Diagnoses Date Provider Providers Copied on Encounter [facility], [address] [place] [address] [address], [place], [place], [id number], tel:[phone] [facility] No Information 8-200 9 Lopez OD Ranjeet. [address] , [address], [place], [place], [facility], [place]. tel:[phone] [facility], [address] [place] [address] [address], [place], [place], [id number], tel:[phone] [facility] No Information 9-200 8 Lopez OD Ranjeet. [address] , [address], [place], [address], [place]. tel:[phone] Family History Family Member Type Diagnosis Age At Onset No Information Payers Payer name Insurance type Covered green party ID Authoriza tion(s) No Information Social History [...]
--- OUTSIDE RECORDS SUMMARY | 2024-09-06 12:47 | XMS_ITS | Clinical Summary ---
Author Organization [facility] Address [address] [place] [address] Care Team Providers Care Window Shade Estimator Name Role Phone Henry Pham MD Primary Care Provider [phone] Allergies No known active allergies Medications amphetamine-dextro [...] patient's age to complete this topic [place] [address] [address] [place] [address] Care Teams Window Shade Estimator Relationship Specialty Start Date End Date Henry Pham MD [address] [place] [address] PCP - General FAMILY PRACTICE 09/06/19
== END 2024-09-06 11:03 | disposition home or self-care (01) ==
PROVIDERS: PCP Family Medicine; Visit Provider Family Medicine
DX: M25.512 Pain in left shoulder (principal)
CPT/HCPCS: 73010; 73030

== ENCOUNTER 2024-11-21 20:18 | Emergency (ER) | payer OTHER, SELFPAY ==
--- NOTE | ~2024-11-21 | CT_ITS ---
CT of the Abdomen and Pelvis: Indication: Abdominal pain Technique: 2.5 mm axial scans were obtained through the abdomen and pelvis following intravenous adm inistration of 100 cc of Omnipaque 350. Dose reduction technique was used on this scan by utilizing a utomated exposure control and iterative reconstruction technique. The dose-length product (DLP) was 1 641.37 mGy-cm. Findings: Scans through the lung bases are unremarkable. Diffuse hepatic steatosis noted. The spleen, pancreas, gallbladder, adrenals and kidneys are within n ormal limits. No evidence of aortic aneurysm. No lymphadenopathy. There is probable mild pericolonic inflammatory change at this mid to distal sigmoid colon. No absces s or free air. No bowel obstruction. Images through the pelvis were performed. Urinary bladder unremarkable. No pelvic mass seen. No ascit es. Mild chronic compression deformity of L1 noted. Impression: Findings most compatible with mild acute diverticulitis of the mid to distal sigmoid colon. No absces s or free air. Diffuse hepatic steatosis. Reviewed, dictated and finalized at location . Impression: Findings most compatible with mild acute diverticulitis of the mid to distal si gmoid colon. No abscess or free air. Diffuse hepatic steatosis.
[2024-11-21 20:19] VITALS: BP 133/86; PULSE 98; RESP 18; TEMP 36.9; O2SAT 98
--- OUTSIDE RECORDS SUMMARY | 2024-11-21 20:20 | XMS_ITS | Continuity of Care Document ---
Author Organization [facility] Address [address] [place] [address] [address] [place] [address] Phone Care Team Providers Care Braille Proofreader Name Role Phone Lopez OD, Ranjeet Unavailable Unavailable Procedures Procedure Date Eye Exam & Treatment Refraction Eye Exam & Treatment Refraction Advance Directives Directive Yes / No Effective Date File Name No Information Encounters Encounter Description Practice Location Reason(s) For Visit Diagnoses Date Provider Providers Copied on Encounter [facility], [address] [place] [address] [address], [place], [place], [id number], tel:[phone] [facility] No Information 8-200 9 Lopez OD Ranjeet. [address] [facility] , [address], [place], [place], [facility], [place]. tel:[phone] [facility], [address] [place] [address] [address], [place], [place], [id number], tel:[phone] [facility] No Information 9-200 8 Lopez OD Ranjeet. [address] , [address], [place], [address], [place]. tel:[phone] Family History Family Member Type Diagnosis Age At Onset No Information Payers Payer name Insurance type Covered libertarian ID Authoriza tion(s) No Information Social History [...]
[2024-11-21 20:31] LABS: Add Urine Microscopic? NO; Appearance Urine Clear (Clear); Bilirubin Urine Negative (Negative); Blood Urine Negative (Negative); Color Urine Light Yellow (Yellow); Glucose Urine UA Negative (Negative); Ketones Urine Negative (Negative); Leukocyte Esterase Ur Negative LEU/UL (Negative); Nitrate Urine Negative (Negative); Protein Urine Negative (Negative); Urobilinogen Urine 0.2 mg/dL (0.2-1.0)
[2024-11-21 20:32] LABS: Pregnancy On Board Control Positive; Urine Pregnancy Test Negative
--- NOTE | 2024-11-21 20:34 | ED_ITS ---
HPI - Abdominal Pain General Chief Complaint: Abdominal Pain Stated Complaint: abdominal pain Time Seen by Provider: 11/21/24 20:29 Source: patient Mode of arrival: ambulatory Limitations: no limitations History of Present Illness HPI narrative: patient is a 39-year-old female with significant past medical history that presents today for abdominal pain. Patient states she has abdominal pain in the left upper quadrant area also kind generalized as well. His says she was feeling constipated but then because some of her grandma get her Colace and that she had diarrhea and the diarrhea stops and then she had nothing. But she says she was having regular bowel movements before that. She says she is definitely she denies a UTI symptoms. MD elicited complaint: abdominal pain Pertinent past history: none Onset (ago): day(s) Pain Consistency: intermittent Location: diffuse and epigastric Severity: moderate Pain scale (0-10): 5 Quality: cramping and aching Radiation: LUQ Migration to: epigastric Exacerbating factors: eating and movement Relieving factors: nothing Context: confirms foreign travel Associated symptoms: denies other symptoms Related Data Home Medications ?Medication ?Instructions ?Recorded ?Confirmed ?Last Taken ?Type dextroamphetamine-amphetamine ER 2 cap PO BID 08/19/19 07/04/22 Unknown History 20 mg 24hr capsule,extend release escitalopram oxalate 20 mg tablet 20 mg PO DAILY 08/19/19 07/04/22 Unknown History Allergies Allergy/AdvReac Type Severity Reaction Status Date / Time No Known Allergies Allergy Mild Verified 11/21/24 20:36 Review of Systems 2 Review of Systems: All systems reviewed & are unremarkable except as noted in HPI and below Constitutional: Constitutional: Reports as per HPI Eyes: Eyes: Reports no additional eye complaints ENT: Reports system reviewed and no additional complaints, except as documented Cardiovascular: Cardiovascular: Reports no additional cardiovascular complaints Respiratory: Respiratory: Reports no additional respiratory complaints Gastrointestinal: Gastrointestinal: Reports as per HPI, Reports abdominal pain, Reports constipation and Reports diarrhea Genitourinary: Genitourinary: Reports no additional female genitourinary complaints Musculoskeletal: Musculoskeletal: Reports no additional musculoskeletal complaints Integumentary/Breasts: Skin/Breast: Reports system reviewed and no additional complaints, except as docu Neurologic: Reports system reviewed and no additional complaints, except as documented Psychiatric: Psychiatric: Reports no additional psychiatric complaints Endocrine: Endocrine: Reports no additional endocrine complaints Hematologic/Lymphatic: Hematologic/Lymphatic: Reports no additional hematologic/lymphatic complaints Allergic/Immunologic: Allergic/Immunologic: Reports no additional allergic/immunologic complaints [facility] Past Medical History Medical History Hypothyroidism Obesity Depression Anxiety ADHD Surgical History Surgical History No pertinent past surgical history Family History Family History Mother Family history of diabetes mellitus in first degree relative Depression Hypertension Family history of sleep apnea Family history of type 2 diabetes mellitus Family history of malignant neoplasm of kidney Sibling Family history of cardiomyopathy Father Family history of emphysema Family history of type 1 diabetes mellitus Social History Social History Smoking status: Never smoker Alcohol intake: current Exam 2 Const: General: healthy appearing Nutritional Appearance: well nourished Orientation/consciousness: patient oriented x3 Limitations: no limitations HENMT: Head: normal to inspection Ears: external ears normal F daron/Nose/Sinus: Normal external nose present Face and sinus: normal facial exam Mouth: Yes Normal oral and palatal mucosa present Teeth and gingiva: dentition normal Throat: posterior oropharynx normal Eyes: Conjunctivae: conjunctivae normal Pupils: Equal, round and reactive pupils present EOM: EOMs intact bilaterally Direct Ophthalmoscopy: no photophobia Neck: Neck: normal visual inspection Chest: Chest palpation & inspection: normal inspection of the chest Resp: Effort & Inspection: normal respiratory effort Auscultation: clear to auscultation bilaterally Cardio: Rate: regular rate Rhythm: regular rhythm GI: GI Palp: Yes Soft to palpation Back/Spine/Pelvis: Back: no CVA tenderness Skin: General skin exam: normal color Rashes: no rashes Wounds: no wounds Neuro: General: patient oriented x3 Cranial nerves: Yes Nystagmus not present Speech: normal speech Gait exam (Neuro): Normal gait present Extrem: General: normal to inspection Psych: Mental Status: mental status grossly normal Affect: normal affect Attitude: cooperative Course Vital Signs Vital signs: Vital Signs Temperature 98.4 F 11/21/24 20:19 Pulse Rate 98 11/21/24 20:19 Respiratory Rate 18 11/21/24 20:19 Blood Pressure 133/86 11/21/24 20:19 Pulse Oximetry 98 11/21/24 20:19 Oxygen Delivery Room Air 11/21/24 20:19 Temperature 98.5 F 11/21/24 22:08 Pulse Rate 85 11/21/24 22:08 Respiratory Rate 18 11/21/24 22:08 Blood Pressure 128/70 11/21/24 22:08 Pulse Oximetry 98 11/21/24 22:08 Oxygen Delivery Autopap 11/21/24 22:08 MDM - Abdominal Pain MDM Narrative Medical decision making narrative: Patient has had abdominal pain for past 4 days now and is continually getting worse she says. Pain as son left side could possibly be diverticulitis or could just be some gastroenteritis. Will do an abdominal states he scan with contrast to rule these Out. Also do full blood panel as well. CT findings consistent with diverticulitis. Will start her on Flagyl Cipro here is iand send the rest to her pharmacy and she can go home. Differential Diagnosis Differential diagnosis: Likely abdominal pain, diverticulitis and endometriosis Medical Records Attestation: I reviewed the patient's medical records. Lab Data Attestation: I reviewed the patient's lab results. 11/21/24 20:50 11/21/24 20:50 Labs: Lab Results 11/21/24 11/21/24 11/21/24 Range/Units 20:22 20:50 21:30 WBC 11.8 H (4.8-10.8) K/mm3 RBC 4.65 (4.20-5.40) M/mm3 Hgb 11.0 L (12.0-15.0) g/dL Hct 36.0 (35.0-49.0) % MCV 77.4 L (78.0-102.0) fL MCH 23.7 L (27.0-31.0) pg MCHC 30.6 L (32-36) g/dL RDW 14.6 H (11.6-14.4) % Plt Count 280 (150-420) K/mm3 MPV 9.8 (9.2-11.8) fl Immature Gran % (Auto) 0.5 H (0.0-0.0) % Neut % (Auto) 71.1 H (50.0-70.0) % Lymph % (Auto) 21.3 (18.0-42.0) % [place] % (Auto) 5.1 (2.0-11.0) % Eos % (Auto) 1.7 (1.0-6.0) % Baso % (Auto) 0.3 (0.0-1.0) % Lymph # (Auto) 2.50 (1.10-4.50) K/mm3 [place] # (Auto) 0.60 (0.10-0.90) K/mm3 Eos # (Auto) 0.20 (0.02-0.50) K/mm3 Baso # (Auto) 0.03 (0.00-0.10) K/mm3 Abs Immat Gran (auto) 0.06 H (0.00-0.00) K/mm3 Absolute Neuts (auto) 8.36 H (1.70-7.20) K/mm3 Absolute Nucleated RBC 0.00 (0.00-0.00) K/mm3 Nucleated RBC % 0.0 (0-0.0) % Sodium 134 L (137-145) mmol/L Potassium 3.7 (3.4-5.0) mmol/L Chloride 102 (98-107) mmol/L Carbon Dioxide 28 (22-30) mmol/L Anion Gap 4 (4-12) mmol/L BUN 7 (7-17) mg/dL Creatinine 0.63 L (0.7-1.0) mg/dL Estim Creat Clear Calc 146 ml/min Estimated GFR > 60 (59 - ) Glucose 144 H (65-110) mg/dL Hemoglobin A1c 6.2 H (<5.7) % Calculated Osmolality 279 L (285-295) mOsm/kg Lactic Acid 1.0 (0.4-2.0) mmol/L Calcium 8.6 (8.4-10.2) mg/dL Total Bilirubin 0.4 (0.2-1.3) mg/dL AST 25 (14-36) U/L ALT 26 (6-35) U/L Alkaline Phosphatase 81 (38-126) U/L Total Protein 7.4 (6.3-8.2) g/dL Albumin 4.0 (3.5-5.1) g/dL Lipase 42 (23-300) U/L Urine Color Light yellow (Yellow) Urine Appearance Clear (Clear) Urine pH 6.0 (5.0-8.0) Ur Specific [place] 1.010 (1.010-1.020) Urine Protein Negative (Negative) Urine Glucose (UA) Negative (Negative) Urine Ketones Negative (Negative) Ur Blood (Man) Negative (Negative) Urine Nitrate Negative (Negative) Urine Bilirubin Negative (Negative) Urine Urobilinogen 0.2 (0.2-1.0) mg/dL Leukocyte Esterase Rfl Negative (Negative) AMADO/UL Urine Test Negative Discharge Plan Discharge Clinical Impression: Diverticulitis Patient Disposition: Home Condition: Stable Instructions: Antibiotic Form, Diverticulitis (ED) Patient Language: Cook Islander Prescriptions: New ciprofloxacin HCl 500 mg tablet 500 mg PO Q12H Qty: 14 0RF metronidazole 500 mg tablet 500 mg PO Q12H Qty: 14 0RF No Action dextroamphetamine-amphetamine 20 mg capsule,extended release 24hr 2 cap PO BID escitalopram oxalate 20 mg tablet 20 mg PO DAILY dicyclomine 20 mg tablet 20 mg PO BID Qty: 10 0RF ondansetron 4 mg tablet,disintegrating 4 mg PO Q8H Qty: 10 0RF Follow-up/Referrals: Henry Pham MD [Primary Care Provider] - Time of Disposition: 23:40
[2024-11-21] MEDS: SODIUM CHLORIDE 0.9% IV 1,000 ML 999 ML IV CONT (20:45)
[2024-11-21] MEDS: ONDANSETRON INJ 4 MG/2 ML VIAL IV PUSH (20:46)
[2024-11-21] MEDS: KETOROLAC 30 MG/ML VIAL (*BKC) IV PUSH (20:47)
[2024-11-21 20:53] LABS: Basophils Absolute Auto 0.03 K/mm3 (0.00-0.10); Basophils Percent Auto 0.3 % (0.0-1.0); Eosinophils Percent Auto 1.7 % (1.0-6.0); Immature Granulocyte Absolute 0.06 K/mm3 (0.00-0.00); Immature Granulocyte Percent A 0.5 % (0.0-0.0); Lymphocytes Percent Auto 21.3 % (18.0-42.0); Mean Corpuscular HGB Conc 30.6 g/dL (32-36); Mean Corpuscular Hemoglobin 23.7 pg (27.0-31.0); Mean Corpuscular Volume 77.4 fL (78.0-102.0); Mean Platelet Volume 9.8 fl (9.2-11.8); Monocytes Percent Auto 5.1 % (2.0-11.0); Neutrophils Absolute Auto 8.36 K/mm3 (1.70-7.20); Neutrophils Percent Auto 71.1 % (50.0-70.0); Platelet Count Result 280 K/mm3 (150-420); Red Blood Count 4.65 M/mm3 (4.20-5.40); Red Cell Distribution Width 14.6 % (11.6-14.4); White Blood Count 11.8 K/mm3 (4.8-10.8)
--- NOTE | 2024-11-21 20:53 | PC.NURSE ---
IV started, blood work drawn and sent to lab and patient medicated per order, see MAR. patient given warm blanket and update provided. call light within reach.
--- OUTSIDE RECORDS SUMMARY | 2024-11-21 21:01 | XMS_ITS | Continuity of Care Document ---
Author Organization [facility] Address [address] [place] [address] [address] [place] [address] Phone Care Team Providers Care Assembler Adjuster Name Role Phone Lopez OD, Ranjeet Unavailable Unavailable Procedures Procedure Date Eye Exam & Treatment Refraction Eye Exam & Treatment Refraction Advance Directives Directive Yes / No Effective Date File Name No Information Encounters Encounter Description Practice Location Reason(s) For Visit Diagnoses Date Provider Providers Copied on Encounter [facility], [address] [place] [address] [address], [place], [place], [id number], tel:[phone] [facility] No Information 8-200 9 Lopez OD Ranjeet. [address] [facility] , [address], [place], [place], [facility], [place]. tel:[phone] [facility], [address] [place] [address] [address], [place], [place], [id number], tel:[phone] [facility] No Information 9-200 8 Lopez OD Ranjeet. [address] , [address], [place], [address], [place]. tel:[phone] Family History Family Member Type Diagnosis Age At Onset No Information Payers Payer name Insurance type Covered democrat ID Authoriza tion(s) No Information Social History [...]
[2024-11-21 21:21] LABS: Alanine Aminotransferase 26 U/L (6-35); Alkaline Phosphatase 81 U/L (38-126); Anion Gap 4 mmol/L (4-12); Aspartate Amino Transferase 25 U/L (14-36); Bilirubin,Total 0.4 mg/dL (0.2-1.3); Blood Urea Nitrogen 7 mg/dL (7-17); Calcium 8.6 mg/dL (8.4-10.2); Carbon Dioxide 28 mmol/L (22-30); Chloride 102 mmol/L (98-107); Estimated CRCL calculation 146 ml/min; Estimated Glomerular Filt Rate > 60; Glucose 144 mg/dL (65-110); Lipase 42 U/L (23-300); Osmolality Calculated 279 mOsm/kg (285-295); Potassium 3.7 mmol/L (3.4-5.0); Sodium 134 mmol/L (137-145); Total Protein 7.4 g/dL (6.3-8.2)
--- NOTE | 2024-11-21 21:26 | PC.NURSE ---
patient to CT scan via stretcher per commodity trader.
--- NOTE | 2024-11-21 21:43 | PC.NURSE ---
patient returned from imaging, awaiting results. call light within reach.
[2024-11-21 22:08] VITALS: BP 128/70; PULSE 85; RESP 18; TEMP 36.9; O2SAT 98
--- NOTE | 2024-11-21 22:09 | PC.NURSE ---
RN to bedside. patient IVF infused. VSS. update provided. patient awake and alert without distress, reports pain has improved since her arrival.
[2024-11-21 22:32] LABS: Hemoglobin A1C 6.2 % (<5.7)
--- NOTE | 2024-11-21 23:07 | PC.NURSE ---
patient resting on stretcher without distress, update provided including awaiting the statrad read of her imaging. mother at bedside, understanding verbalized by both patient and her visitor. patient denies further needs, call light within reach
--- NOTE | 2024-11-21 23:43 | PC.NURSE ---
ERP Dr. Dover at patient bedside at this time providing update including results and plan of care. mother at bedside as well as this time.
[2024-11-21] MEDS: metroNIDAZOLE 250 MG TABLET 500 MG PO (23:46)
[2024-11-21] MEDS: CIPROFLOXACIN 500 MG TAB PO (23:46)
[2024-11-21 23:48] VITALS: BP 129/74; PULSE 86; RESP 18; TEMP 36.7; O2SAT 97
== END 2024-11-22 00:04 | disposition home or self-care (01) ==
PROVIDERS: Emergency Provider Family Medicine; PCP Family Medicine
DX: K57.92 Diverticulitis of intestine, part unspecified, without perforation or abscess without bleeding (principal); E03.9 Hypothyroidism, unspecified
CPT/HCPCS: 36415; 74177; 80053; 81003; 81025; 83036; 83605; 83690; 85025; 96361; 96374; 96375; 99284; A9270; J1885; J2405; J7030; Q9967

== ENCOUNTER 2024-12-27 14:55 | Outpatient (CLI) | payer OTHER, SELFPAY ==
--- NOTE | ~2024-12-27 | XR_ITS ---
Clinical Indication: Cough PA and lateral views of the chest: Comparison: 01/12/2023 Findings: The lungs are clear, without evidence of focal consolidation or pleural effusion. Cardiome diastinal silhouette is within normal limits. Bones and soft tissues are unremarkable. Impression: Normal chest. Reviewed, dictated and finalized at location . Impression: Normal chest.
--- OUTSIDE RECORDS SUMMARY | 2024-12-27 15:00 | XMS_ITS | Continuity of Care Document ---
Author Organization [facility] Address [address] [place] [address] [address] [place] [address] Phone Care Team Providers Care Customer Assistance Associate Name Role Phone Lopez OD, Ranjeet Unavailable Unavailable Procedures Procedure Date Eye Exam & Treatment Refraction Eye Exam & Treatment Refraction Advance Directives Directive Yes / No Effective Date File Name No Information Encounters Encounter Description Practice Location Reason(s) For Visit Diagnoses Date Provider Providers Copied on Encounter [facility], [address] [place] [address] [address], [place], [place], [id number], tel:[phone] [facility] No Information 8-200 9 Lopez OD Ranjeet. [address] [facility] , [address], [place], [place], [facility], [place]. tel:[phone] [facility], [address] [place] [address] [address], [place], [place], [id number], tel:[phone] [facility] No Information 9-200 8 Lopez OD Ranjeet. [address] , [address], [place], [address], [place]. tel:[phone] Family History Family Member Type Diagnosis Age [...]
--- OUTSIDE RECORDS SUMMARY | 2024-12-27 15:00 | XMS_ITS | Clinical Summary ---
Author Organization [facility] Address [address] [place] [address] Care Team Providers Care Medical Doctor Md Name Role Phone Henry Pham MD Primary Care Provider [phone] Allergies No known active allergies Medications amphetamine-dextro [...] 10:22 AM CDT Height 165.1 cm (5' 5) 11/08/2019 10:22 AM CDT Body Mass Index [...] Vaccine ( - 2023-2 5 season) 2024 HPV Vaccines Aged Out No longer eligi ble based on patient's age to complete this topic Meningococcal B Vaccine Aged Out No l onger eligible based on patient's age to complete this topic Meningococcal Vaccine Aged Out No courtney leslie eligible based on patient's age to complete this topic Pneumococcal Vaccine: Pediat rics (0 to 5 Years) and At-Risk Patients (6 to 49 Years) Aged Out No longer eligible b ased on patient's age to complete this topic RSV Immunizations Under 20 Months Aged Out No longer eligible based on patient's age to complete this topic Insurance Care Teams Medical Doctor Md Relationship Specialty Start Date End Date Henry Pham MD [address] [place] [address] PCP - General FAMILY PRACTICE 09/06/19
== END 2024-12-27 14:56 | disposition home or self-care (01) ==
PROVIDERS: PCP Family Medicine; Visit Provider Family Medicine
DX: R05.1 Acute cough (principal)
CPT/HCPCS: 71046

== ENCOUNTER 2025-01-18 12:46 | Outpatient (CLI) | payer OTHER, SELFPAY ==
--- OUTSIDE RECORDS SUMMARY | 2025-01-18 12:53 | XMS_ITS | Clinical Summary ---
Author Organization [facility] Address [address] [place] [address] Care Team Providers Care Office Machine Service Supervisor Name Role Phone Henry Pham MD Primary Care Provider [phone] Allergies No known active allergies Medications amphetamine-dextro [...] of 3 - 19+ 3-dose series) 2006 HPV Vaccines (1 - 3-dose SCD M series) 2014 Cervical Cancer Screening Pa p with HPV Testing (Age 30 to 64) Every 5 Years 2017 Cervical Cancer Screening with HPV 2017 COVID-19 Vaccine (2023-2 5 season) 2024 Meningococcal B Vaccine Aged Out No l [...] patient's age to complete this topic [place] [place] [address] Care Teams Office Machine Service Supervisor Relationship Specialty Start Date End Date Henry Pham MD [address] [place] [address] PCP - General FAMILY PRACTICE 09/06/19
== END 2025-01-18 12:47 | disposition home or self-care (01) ==
PROVIDERS: PCP Family Medicine; Visit Provider Family Medicine
DX: R05.1 Acute cough (principal)
CPT/HCPCS: 94060; 94726; 94729

== ENCOUNTER 2025-04-14 01:00 | Emergency (ER) | payer OTHER, SELFPAY ==
[2025-04-14] VITALS (15 sets, daily range): BP systolic 115–152; BP diastolic 52–102; PULSE 68–95; RESP 16–20; TEMP 36.5–36.9; O2SAT 93–98
--- NOTE | ~2025-04-14 | CT_ITS ---
CT ABDOMEN AND PELVIS WITHOUT CONTRAST Clinical History: LEFT FLANK PAIN X 2 HOURS Comparison: 11/21/2024 Technique: Unenhanced axial images lung bases to symphysis pubis Coronal, sagittal reformats CT images acquired with automatic exposure control for dose reduction DLP: 1553 mGy-cm Findings: Without intravenous contrast, sensitivity for detecting visceral parenchymal abnormalities decreased. Lung bases: Clear. Visualized heart and pericardium: Unremarkable. Liver: Enlarged. Steatosis. Gallbladder: Unremarkable. Spleen: Unremarkable. Pancreas: Unremarkable. Adrenal glands: Unremarkable. Kidneys: Right kidney- No hydronephrosis. No renal stones. Left kidney- No hydronephrosis. No renal stones. Distal esophagus/stomach: Unremarkable. Small bowel loops: Normal caliber and wall thickness. Colon: Diverticula. Minimal pericolonic inflammatory change left hemicolon. Normal caliber and wall thickness. Normal RLQ appendix. Nodes: No enlarged nodes. Peritoneum: No ascites. No free intraperitoneal air. Urinary bladder: Unremarkable. Uterus: Unremarkable. Adnexa: No masses. Bones: No acute bony abnormality. Mild superior endplate height loss at L1. Soft tissues: Unremarkable. Unopacified abdominal aorta: No aneurysmal dilatation. IMPRESSION: 1. Mild acute uncomplicated diverticulitis left hemicolon. Reviewed, dictated and finalized at location R.
--- NOTE | 2025-04-14 01:11 | ED_ITS ---
HPI - Abdominal Pain General Chief Complaint: Urogenital-Female Stated Complaint: left side abd pain Time Seen by Provider: 04/14/25 01:07 Source: patient Mode of arrival: ambulatory Limitations: no limitations History of Present Illness HPI narrative: Patient is a 39-year-old female with left flank pain for the past day. She has associated looser stools today x3. No nausea or vomiting. The pain migrates from the left back all the way down to the side left lower quadrant abdomen. MD elicited complaint: abdominal pain and flank pain Pertinent past history: diverticulitis Onset (ago): day(s) (One) Pain Consistency: constant Location: LLQ and L flank Severity: moderate Pain scale (0-10): 6 Quality: sharp Radiation: back (Left lower) Migration to: L flank Exacerbating factors: movement Relieving factors: rest Context: confirms other (Patient having left lower back pain which goes to the left flank which goes left lower quadrant over the past day) Associated symptoms: diarrhea (X3 loose stools today) Treatments prior to arrival: other (None) Related Data Home Medications ?Medication ?Instructions ?Recorded ?Confirmed ?Last Taken ?Type dextroamphetamine-amphetamine ER 2 cap PO BID 08/19/19 07/04/22 Unknown History 20 mg 24hr capsule,extend release escitalopram oxalate 20 mg tablet 20 mg PO DAILY 08/1907/04/22 Unknown History Allergies Allergy/AdvReac Type Severity Reaction Status Date / Time No Known Allergies Allergy Mild Verified 04/14/25 01:12 Review of Systems 2 Review of Systems: All systems reviewed & are unremarkable except as noted in HPI and below Constitutional: Constitutional: Reports no additional constitutional complaints Eyes: Eyes: Reports no additional eye complaints ENT: Reports system reviewed and no additional complaints, except as documented Cardiovascular: Cardiovascular: Reports no additional cardiovascular complaints Respiratory: Respiratory: Reports no additional respiratory complaints Gastrointestinal: Gastrointestinal: Reports no additional gastrointestinal complaints Genitourinary: Genitourinary: Reports no additional female genitourinary complaints Musculoskeletal: Musculoskeletal: Reports no additional musculoskeletal complaints Integumentary/Breasts: Skin/Breast: Reports system reviewed and no additional complaints, except as docu Neurologic: Reports system reviewed and no additional complaints, except as documented Psychiatric: Psychiatric: Reports no additional psychiatric complaints Endocrine: Endocrine: Reports no additional endocrine complaints Hematologic/Lymphatic: Hematologic/Lymphatic: Reports no additional hematologic/lymphatic complaints Allergic/Immunologic: Allergic/Immunologic: Reports no additional allergic/immunologic complaints PMFSH Past Medical History Medical History (Reviewed 04/14/25 @ :29 by Alex Resendiz MD) Hypothyroidism Obesity Depression Anxiety ADHD Surgical History Surgical History (Reviewed 04/14/25 @ : by Alex Resendiz MD) No pertinent past surgical history Family History Family History (Reviewed 04/14/25 @ :29 by Alex Resendiz MD) Mother Family history of diabetes mellitus in first degree relative Depression Hypertension Family history of sleep apnea Family history of type 2 diabetes mellitus Family history of malignant neoplasm of kidney Sibling Family history of cardiomyopathy Father Family history of emphysema Family history of type 1 diabetes mellitus Social History Social History (Reviewed 04/14/25 @ : by Alex Resendiz MD) Smoking status: Never smoker Alcohol intake: current Exam 2 Const: General: healthy appearing Nutritional Appearance: well nourished Orientation/consciousness: patient oriented x3 HENMT: Head: normal to inspection Ears: external ears normal F daron/Nose/Sinus: Normal external nose present Eyes: Conjunctivae: conjunctivae normal Pupils: Equal, round and reactive pupils present EOM: EOMs intact bilaterally Neck: Neck: normal visual inspection Chest: Chest palpation & inspection: normal inspection of the chest Resp: Effort & Inspection: normal respiratory effort and not labored A uscultation: clear to auscultation bilaterally and no crackles Cardio: Rate: regular rate Rhythm: regular rhythm Heart sounds: no murmurs GI: Inspection: non-distended GI Palp: Yes Soft to palpation, Yes Tenderness to palpation present (GI) (Left lower quadrant and left flank), Yes Guarding due to palpation present (GI), No Rigid due to palpation, No Hernia present, No Palpable mass present and No Rebound tenderness present A uscultation: bowels sounds not normal and Hypoactive bowel sounds present : General: Yes bladder normal to palpation Back/Spine/Pelvis: Back: no CVA tenderness Skin: General skin exam: normal color Rashes: no rashes Wounds: no wounds Neuro: General: patient oriented x3, moves all extremities and no meningeal signs Extrem: General: normal to inspection Psych: Mental Status: mental status grossly normal Affect: normal affect Attitude: cooperative Course Vital Signs Vital signs: Vital Signs Temperature 36.5 C 04/14/25 01:00 Pulse Rate 95 04/14/25 01:00 Respiratory Rate 20 04/14/25 01:00 Blood Pressure 152/102 H 04/14/25 01:00 Pulse Oximetry 97 04/14/25 01:00 Oxygen Delivery Room Air 04/14/25 01:00 Temperature 36.5 C 04/14/25 01:00 Pulse Rate 95 04/14/25 01:00 Respiratory Rate 20 04/14/25 01:00 Blood Pressure 152/102 H 04/14/25 01:00 Pulse Oximetry 97 04/14/25 01:00 Oxygen Delivery Room Air 04/14/25 01:00 MDM - Abdominal Pain MDM Narrative Medical decision making narrative: Patient is a 39-year-old female with left flank pain over the past day. We will do a kidney stone workup at this time. Lab Data Attestation: I reviewed the patient's lab results. 04/14/25 01:17 Labs: Lab Results 04/14/25 04/14/25 Range/Units 01:17 01:29 WBC 11.7 H (4.8-10.8) K/mm3 RBC 4.64 (4.20-5.40) M/mm3 Hgb 11.0 L (12.0-15.0) g/dL Hct 35.4 (35.0-49.0) % MCV 76.3 L (78.0-102.0) fL MCH 23.7 L (27.0-31.0) pg MCHC 31.1 L (32-36) g/dL RDW 14.8 H (11.6-14.4) % Plt Count 274 (150-420) K/mm3 MPV 10.3 (9.2-11.8) fl Immature Gran % (Auto) 0.6 H (0.0-0.0) % Neut % (Auto) 67.4 (50.0-70.0) % Lymph % (Auto) 22.9 (18.0-42.0) % [place] % (Auto) 6.8 (2.0-11.0) % Eos % (Auto) 2.0 (1.0-6.0) % Baso % (Auto) 0.3 (0.0-1.0) % Lymph # (Auto) 2.67 (1.10-4.50) K/mm3 [place] # (Auto) 0.80 (0.10-0.90) K/mm3 Eos # (Auto) 0.23 (0.02-0.50) K/mm3 Baso # (Auto) 0.04 (0.00-0.10) K/mm3 Abs Immat Gran (auto) 0.07 H (0.00-0.00) K/mm3 Absolute Neuts (auto) 7.87 H (1.70-7.20) K/mm3 Absolute Nucleated RBC 0.00 (0.00-0.00) K/mm3 Nucleated RBC % 0.0 (0-0.0) % PT Pending INR Pending APTT Pending Sodium Pending Potassium Pending Chloride Pending Carbon Dioxide Pending Anion Gap Pending BUN Pending Creatinine Pending Estim Creat Clear Calc Pending Estimated GFR Pending Glucose Pending Calculated Osmolality Pending Lactic Acid Pending Calcium Pending Total Bilirubin Pending AST Pending ALT Pending Alkaline Phosphatase Pending Total Protein Pending Albumin Pending Lipase Pending Urine Test Negative Imaging Data Attestation: I personally reviewed and interpreted this imaging study as follows: Radiologist's impression: CT scan of the abdomen and pelvis shows diverticulitis descending colon Discharge Plan Discharge Clinical Impression: Diverticulitis Patient Disposition: Home Condition: Stable Instructions: Antibiotic Form, Diverticulitis (ED) Patient Language: Slovak Prescriptions: New ciprofloxacin HCl [Cipro] 500 mg tablet 500 mg PO BID 7 Days Qty: 14 0RF metronidazole 500 mg tablet 500 mg PO TID 7 Days Qty: 21 0RF ondansetron 4 mg tablet,disintegrating 4 mg PO Q8H PRN (Reason: nausea and vomiting) Qty: 20 0RF hydrocodone-acetaminophen 5-325 mg tablet 1 tablet PO Q8H PRN (Reason: pain) Qty: 20 0RF No Action dextroamphetamine-amphetamine 20 mg capsule,extended release 24hr 2 cap PO BID escitalopram oxalate 20 mg tablet 20 mg PO DAILY dicyclomine 20 mg tablet 20 mg PO BID Qty: 10 0RF ondansetron 4 mg tablet,disintegrating 4 mg PO Q8H Qty: 10 0RF ciprofloxacin HCl 500 mg tablet 500 mg PO Q12H Qty: 14 0RF metronidazole 500 mg tablet 500 mg PO Q12H Qty: 14 0RF Follow-up/Referrals: Henry Pham MD [Primary Care Provider, Internal Medicine] Time of Disposition: 03:57
[2025-04-14 01:28] LABS: Hematocrit 35.4 % (35.0-49.0); Hemoglobin 11.0 g/dL (12.0-15.0); Immature Granulocyte Percent A 0.6 % (0.0-0.0); Lymphocytes Absolute Auto 2.67 K/mm3 (1.10-4.50); Mean Corpuscular HGB Conc 31.1 g/dL (32-36); Mean Corpuscular Hemoglobin 23.7 pg (27.0-31.0); Mean Corpuscular Volume 76.3 fL (78.0-102.0); Nucleated Red Blood Cells Absolute Auto 0.00 K/mm3 (0.00-0.00); Nucleated Red Blood Cells Perc 0.0 % (0-0.0); Platelet Count Result 274 K/mm3 (150-420); Red Blood Count 4.64 M/mm3 (4.20-5.40); White Blood Count 11.7 K/mm3 (4.8-10.8)
[2025-04-14] MEDS: ONDANSETRON INJ 4 MG/2 ML VIAL IV PUSH (01:38)
[2025-04-14] MEDS: MORPHINE SULFATE (*CRX) 2 MG/ML INJ 4 MG IV PUSH (01:40)
[2025-04-14 01:49] LABS: Pregnancy On Board Control Positive
[2025-04-14] MEDS: metroNIDAZOLE 500 MG/ISO 100ML 500 MG/100 ML BAG 100 MG IVPB (03:31)
[2025-04-14] MEDS: CIPROFLOXACIN 400 MG/D5W 200ML 200 ML 200 MG IVPB (04:25)
[2025-04-14 05:13] LABS: Add Urine Microscopic? NO; Appearance Urine Clear (Clear); Glucose Urine UA Negative (Negative); Leukocyte Esterase Ur Negative LEU/UL (Negative); Nitrate Urine Negative (Negative); Specific Grav Ur 1.010 (1.010-1.020)
[2025-04-14 05:15] LABS: Alanine Aminotransferase 34 U/L (6-35); Albumin Level 4.2 g/dL (3.5-5.1); Alkaline Phosphatase 110 U/L (38-126); Anion Gap 8 mmol/L (4-12); Aspartate Amino Transferase 30 U/L (14-36); Bilirubin,Total 0.3 mg/dL (0.2-1.3); Blood Urea Nitrogen 11 mg/dL (7-17); Calcium 9.1 mg/dL (8.4-10.2); Carbon Dioxide 27 mmol/L (22-30); Chloride 102 mmol/L (98-107); Estimated CRCL calculation 170 ml/min; Estimated Glomerular Filt Rate > 60; Glucose 125 mg/dL (65-110); INR 0.9; Lipase 63 U/L (23-300); Osmolality Calculated 284 mOsm/kg (285-295); Partial Thromboplastin Time 27.0 Sec (23.9-30.70); Potassium 4.3 mmol/L (3.4-5.0); Prothrombin Time 10.1 Seconds (9.50-12.1); Sodium 137 mmol/L (137-145); Total Protein 9.3 g/dL (6.3-8.2)
== END 2025-04-14 05:30 | disposition home or self-care (01) ==
PROVIDERS: Emergency Provider Emergency Medicine; PCP Family Medicine
DX: K57.92 Diverticulitis of intestine, part unspecified, without perforation or abscess without bleeding (principal); E03.9 Hypothyroidism, unspecified
CPT/HCPCS: 36415; 74176; 80053; 81003; 81025; 83605; 83690; 85025; 85610; 85730; 96365; 96367; 96375; 99284; J0744; J1836; J2270; J2405

== ENCOUNTER 2025-05-19 13:48 | Outpatient (CLI) | payer OTHER, SELFPAY ==
--- OUTSIDE RECORDS SUMMARY | 2025-05-19 13:52 | XMS_ITS | Clinical Summary ---
Author Organization [facility] Address [address] [place] [id number] Care Team Providers Care Manager Emergency Name Role Phone Henry Pham MD Primary Care Provider [phone] Allergies No known active allergies Medications amphetamine-dextro [...] Cancer Screening with HPV 2017 COVID-19 Vaccine (2024-2 6 season) 2025 Influenza Adult (#1) 2025 Hepatitis A Vaccines Aged Out No long er eligible based on patient's age to complete [...] to complete this topic Insurance Care Teams Manager Emergency Relationship Specialty Start Date End Date Henry Pham MD [address] [place] [address] PCP - General FAMILY PRACTICE 09/06/19
[2025-05-19 14:17] LABS: Hematocrit 37.8 % (35.0-49.0); Hemoglobin 11.2 g/dL (12.0-15.0); Immature Granulocyte Percent A 0.4 % (0.0-0.0); Immature Platelet Fraction Pct 4.5 % (1.0-7.0); Lymphocytes Absolute Auto 2.43 K/mm3 (1.10-4.50); Mean Corpuscular HGB Conc 29.6 g/dL (32-36); Mean Corpuscular Hemoglobin 23.8 pg (27.0-31.0); Mean Corpuscular Volume 80.3 fL (78.0-102.0); Nucleated Red Blood Cells Absolute Auto 0.00 K/mm3 (0.00-0.00); Nucleated Red Blood Cells Perc 0.0 % (0-0.0); Platelet Count Result 203 K/mm3 (150-420); Red Blood Count 4.71 M/mm3 (4.20-5.40); White Blood Count 9.3 K/mm3 (4.8-10.8)
[2025-05-19 14:27] LABS: Hemoglobin A1C 6.4 % (<5.7)
[2025-05-19 14:42] LABS: Alanine Aminotransferase 54 U/L (6-35); Albumin Level 4.2 g/dL (3.5-5.1); Alkaline Phosphatase 93 U/L (38-126); Anion Gap 12 mmol/L (4-12); Aspartate Amino Transferase 44 U/L (14-36); Bilirubin,Total < 0.1 mg/dL (0.2-1.3); Blood Urea Nitrogen 12 mg/dL (7-17); Calcium 8.9 mg/dL (8.4-10.2); Carbon Dioxide 24 mmol/L (22-30); Chloride 105 mmol/L (98-107); Estimated Glomerular Filt Rate > 60; Glucose 126 mg/dL (65-110); Osmolality Calculated 293 mOsm/kg (285-295); Potassium 3.7 mmol/L (3.4-5.0); Sodium 141 mmol/L (137-145); Total Protein 7.3 g/dL (6.3-8.2)
[2025-05-19 15:11] LABS: Thyroid Stimulating Hormone 2.620 uIU/mL (0.465-4.680)
== END 2025-05-19 13:49 | disposition home or self-care (01) ==
PROVIDERS: PCP Family Medicine; Visit Provider Family Medicine
DX: E03.9 Hypothyroidism, unspecified (principal); R73.9 Hyperglycemia, unspecified
CPT/HCPCS: 36415; 80053; 83036; 84443; 85025; 85055

== ENCOUNTER 2025-06-07 11:24 | Outpatient (CLI) | payer OTHER, SELFPAY ==
[2025-06-07 12:22] LABS: Immature Reticulocyte Fraction 26.8 % (2.0-16.52); Reticulocyte Hemoglobin Conten 27.1 pg (28.0-35.0); Reticulocytes Absolute 0.09 M/mm3 (0.02-0.10)
[2025-06-07 12:50] LABS: Iron 57 ug/dL (37-170)
[2025-06-07 12:58] LABS: Influenza A QL RT-PCR Negative (Negative); Influenza B QL RT-PCR Negative (Negative); RSV RNA, RT-PCR Negative (Negative); SARS-CoV-2 RNA PCR Negative (Negative)
[2025-06-07 12:59] LABS: Percent Iron Saturation 14 % (20-50)
[2025-06-07 13:27] LABS: Ferritin 21.20 ng/mL (6.24-137)
[2025-06-09 20:05] LABS: Hepatitis B Surface Antigen Negative (Negative)
[2025-06-09 20:11] LABS: HAV RESULT Negative (Negative); Hepatitis B Core IgM Result Negative (Negative)
== END 2025-06-07 11:25 | disposition home or self-care (01) ==
LOC: CHSLAB 11:27
PROVIDERS: PCP Family Medicine; Visit Provider Family Medicine
DX: K76.0 Fatty (change of) liver, not elsewhere classified (principal); D64.9 Anemia, unspecified; R05.1 Acute cough
CPT/HCPCS: 36415; 80074; 82728; 83540; 83550; 85046; 87637; 87798